=== PATIENT | female | born 1995 | race Caucasian/White ===

== ENCOUNTER → 2018-01-12 | Outpatient (CLI) | payer OTHER ==
--- NOTE | 2018-01-12 14:16 | Diagnostic Imaging Report ---
PROCEDURE: US PELVIC (NON OB) TECHNIQUE: Multiple real-time grayscale images were obtained over the pelvis in various projections transabdominally. INDICATION: Dysfunctional uterine bleeding. The uterus measures 7.7 x 4.5 x 3.5 cm. Endometrium is 5 mm in thickness. No uterine mass is detected. The right ovary measures 2.9 x 2.5 x 2.7 cm, and the left ovary measures 3.1 x 1.7 x 2.5 cm. The right ovary does contain a 16 mm cyst. Left ovary contains an 11 mm follicle. No adnexal mass or free fluid is seen. There is blood flow to the ovaries. IMPRESSION: Small right ovarian cyst. Study is otherwise unremarkable. Dictated by: Dictated on workstation # [id number]
== END ==
LOC: RAD 13:33
PROVIDERS: ATTEND Physician Assistant
DX: N83.201 Unspecified ovarian cyst, right side (principal)
CPT/HCPCS: 76856

== ENCOUNTER 2019-01-30 07:26 | Emergency (ER) | payer SELFPAY ==
[~2019-01-30] VITALS: Ht 165.1 cm; Wt 72.6 kg
--- NOTE | 2019-01-30 07:42 | ED Abdominal Pain ---
General Stated Complaint: ABD PAIN Source of Information: Patient Exam Limitations: No Limitations History of Present Illness Date Seen by Provider: Jan 30, 2019 Time Seen by Provider: 07:30 Initial Comments The patient presents to ER by private conveyance with chief complaint of left lower quadrant abdominal pelvis pain. His been going on for 4 days for the past 2 days have been far worse. She says it hurts worse when she urinates. She's not having any discharge. She had a last menstrual period 2 weeks ago. She has had her appendix and gallbladder surgically removed and no other surgeries. She is not on control nor has she had her tubes tied. She denies any trauma. She had a bowel movement 2 days ago. After having her gallbladder out her stools of been inconsistent. She's had no nausea or fever but she has had some chills. She says she sat on her front porch for the past 2 days with [place] on. She does have a history of ovarian cysts and endometriosis. She used Tylenol this morning with minimal relief. She has not used any NSAIDs. Allergies and Home Medications Allergies Coded Allergies: No Known Drug Allergies (Unverified , 01/30/19) Patient Home Medication List Home Medication List Reviewed: Yes Review of Systems Review of Systems Constitutional: No chills, No diaphoresis EENTM: No Blurred Vision, No Double Vision Respiratory: Denies Cough, Denies Shortness of Air Cardiovascular: Denies Chest Pain, Denies Lightheadedness Gastrointestinal: See HPI, Abdominal Pain, Constipated; Denies Diarrhea, Denies Nausea Genitourinary: Denies Burning, Denies Discharge Past Nxnlfdi-Axnwjb-Byisgh Hx Patient Social History Alcohol Use: Rarely Uses Recreational Drug Use: No Smoking Status: Current Everyday Smoker Type Used: Cigarettes (0.5 ppd) Physical Exam Vital Signs Vital Signs - First Documented 01/30/19 07:30 Temp 96.7 Pulse 88 Resp 18 B/P (MAP) 146/90 (108) Pulse Ox 100 Capillary Refill : Height/Weight/BMI Height: '" Weight: lbs. oz. kg; BMI Method: General Appearance: WD/WN, mild distress HEENT: PERRL/EOMI, pharynx normal Neck: full range of motion, normal inspection Respiratory: no respiratory distress, no accessory muscle use Cardiovascular: normal peripheral pulses, regular rate, rhythm, no edema Peripheral Pulses: 2+ Dorsalis Pedis (R), 2+ Left Dors-Pedis (L) Gastrointestinal: normal bowel sounds (active), non tender, soft, no organomegaly, other (negative for so as her mesenteric signs. ) Extremities: normal inspection, no pedal edema, normal capillary refill Neurologic/Psychiatric: alert, normal mood/affect, oriented x 3 Progress/Results/Core Measures Results/Orders Lab Results Laboratory Tests Test 01/30/19 07:35 01/30/19 07:45 Range/Units Urine Color YELLOW Urine Clarity SL CLOUDY Urine pH 7.0 5-9 Urine Specific [place] 1.010 L 1.016-1.022 Urine Protein NEGATIVE NEGATIVE Urine Glucose (UA) NEGATIVE NEGATIVE Urine Ketones NEGATIVE NEGATIVE Urine Nitrite NEGATIVE NEGATIVE Urine Bilirubin NEGATIVE NEGATIVE Urine Urobilinogen 0.2 NORMAL MG/DL Urine Leukocyte Esterase TRACE H NEGATIVE Urine RBC (Auto) NEGATIVE NEGATIVE Urine RBC NONE /HPF Urine WBC 10-25 H /HPF Urine Squamous Epithelial Cells >50 H /HPF Urine Crystals NONE /LPF Urine Bacteria FEW H /HPF Urine Casts NONE /LPF Urine Mucus NEGATIVE /LPF Urine Culture Indicated YES White Blood Count 10.9 4.3-11.0 10^3/uL Red Blood Count 4.54 4.35-5.85 10^6/uL Hemoglobin 14.8 11.5-16.0 G/DL Hematocrit 43 35-52 % Mean Corpuscular Volume 94 80-99 FL Mean Corpuscular Hemoglobin 33 25-34 PG Mean Corpuscular Hemoglobin Concent 35 32-36 G/DL Red Cell Distribution Width 12.0 10.0-14.5 % Platelet Count 162 130-400 10^3/uL Mean Platelet Volume 11.1 H 7.4-10.4 FL Neutrophils (%) (Auto) 70 42-75 % Lymphocytes (%) (Auto) 22 12-44 % Monocytes (%) (Auto) 5 0-12 % Eosinophils (%) (Auto) 3 0-10 % Basophils (%) (Auto) 0 0-10 % Neutrophils # (Auto) 7.6 1.8-7.8 X 10^3 Lymphocytes # (Auto) 2.4 1.0-4.0 X 10^3 Monocytes # (Auto) 0.6 0.0-1.0 X 10^3 Eosinophils # (Auto) 0.3 0.0-0.3 10^3/uL Basophils # (Auto) 0.0 0.0-0.1 10^3/uL Sodium Level 140 135-145 MMOL/L Potassium Level 3.8 3.6-5.0 MMOL/L Chloride Level 104 98-107 MMOL/L Carbon Dioxide Level 22 21-32 MMOL/L Anion Gap 14 5-14 MMOL/L Blood Urea Nitrogen 9 7-18 MG/DL Creatinine 0.74 0.60-1.30 MG/DL Estimat Glomerular Filtration Rate > 60 BUN/Creatinine Ratio 12 Glucose Level 98 70-105 MG/DL Calcium Level 9.1 8.5-10.1 MG/DL Corrected Calcium 8.8 8.5-10.1 MG/DL Total Bilirubin 0.2 0.1-1.0 MG/DL Aspartate Amino Transf (AST/SGOT) 17 5-34 U/L Alanine Aminotransferase (ALT/SGPT) 12 0-55 U/L Alkaline Phosphatase 63 40-136 U/L Total Protein 6.9 6.4-8.2 GM/DL Albumin 4.4 3.2-4.5 GM/DL Lipase 60 8-78 U/L My Orders Orders - SUSIE NOLAN Ua Culture If Indicated (01/30/19 07:28) Urine Bedside (01/30/19 07:30) Ed Iv/Invasive Line Start (01/30/19 07:37) Cbc With Automated Diff (01/30/19 07:37) Comprehensive Metabolic Panel (01/30/19 07:37) Lipase (01/30/19 07:37) Ketorolac Injection (Toradol Injection) (01/30/19 07:45) Urine Culture (01/30/19 07:35) Medications Given in ED Current Medications Medications Dose Ordered Sig/Gisell Route Start Time Stop Time Status Last Admin Dose Admin Ketorolac Tromethamine 30 mg ONCE ONCE IVP 01/30/19 07:45 01/30/19 07:46 DC 01/30/19 07:50 30 MG Vital Signs/I&O 01/30/19 07:30 Temp 96.7 Pulse 88 Resp 18 B/P (MAP) 146/90 (108) Pulse Ox 100 Progress Progress Note #1: Time: 07:41 Progress Note We'll start with Toradol and check urine, bedside and basic labs to include lipase. If we cannot control her pain or she has concerning laboratory features we would consider further investigation. Differential includes UTI, ovarian cyst, endometriosis, mittelschmerz, constipation. Progress Note #2: Time: 09:12 Progress Note Toradol was of modest benefit. Her labs are unrevealing. Her exam is still benign. We'll recommend some conservative management with laxatives, Tylenol, ibuprofen, heat and rest. She does not have to work today. Departure Impression Primary Impression: Abdominal pain Qualified Codes: R10.32 - Left lower quadrant pain Disposition: HOME, SELF-CARE Condition: Stable Departure-Patient Inst. Decision time for Depature: 09:13 Referrals: NO,LOCAL PHYSICIAN (PCP/Family) Primary Care Physician Patient Instructions: Painful Ovulation (DC) Add. Discharge Instructions: Perhaps this could be caused by mittelschmerz, constipation, ovarian cyst but it does not seem dangerous at this time. If your urine culture grows out a bad bacteria we will call you out an antibiotic in the next 2-3 days. If your pain becomes intractable or you start to have nausea vomiting and cannot keep fluids down or fever then you should return to the ER for further evaluation. Trial some laxatives such as Dulcolax or MiraLAX for the next day or so. Tylenol 1000 mg every 8 hours as needed for pain. Ibuprofen 800 mg every 8 hours as needed for pain. Warm heating pads applied to the abdominal wall. SUSIE NOLAN Jan 30, 2019 07:41
[2019-01-30] MEDS ORDERED: KETOROLAC 30 MG/ML VIAL IVP ONE (07:45)
[2019-01-30 07:54] LABS: COLOR,URINE YELLOW
[2019-01-30 07:55] LABS: BACTERIA,URINE FEW /HPF; BILIRUBIN,URINE NEGATIVE (NEGATIVE); CLARITY,URINE SL CLOUDY; GLUCOSE, URINE (UA) NEGATIVE (NEGATIVE); KETONES,URINE NEGATIVE (NEGATIVE); LEUKOCYTE ESTERASE ,URINE TRACE (NEGATIVE); NITRITE,URINE NEGATIVE (NEGATIVE); PROTEIN,URINE NEGATIVE (NEGATIVE); SQUAMOUS EPITHELIAL CELL,UR >50 /HPF; UROBILINOGEN,URINE 0.2 MG/DL (NORMAL)
[2019-01-30 09:05] LABS: BASOPHILS % (AUTO) 0 % (0-10); EOSINOPHILS # (AUTO) 0.3 10^3/uL (0.0-0.3); EOSINOPHILS % (AUTO) 3 % (0-10); HEMATOCRIT 43 % (35-52); HEMOGLOBIN 14.8 G/DL (11.5-16.0); LYMPHOCYTES # (AUTO) 2.4 X 10^3 (1.0-4.0); LYMPHOCYTES % (AUTO) 22 % (12-44); MEAN CORPUSCULAR HEMOGLOBIN 33 PG (25-34); MEAN CORPUSCULAR HGB CONC 35 G/DL (32-36); MEAN CORPUSCULAR VOLUME 94 FL (80-99); MEAN PLATELET VOLUME 11.1 FL (7.4-10.4); MONOCYTES # (AUTO) 0.6 X 10^3 (0.0-1.0); MONOCYTES % (AUTO) 5 % (0-12); NEUTROPHILS # (AUTO) 7.6 X 10^3 (1.8-7.8); NEUTROPHILS % (AUTO) 70 % (42-75); PLATELET COUNT 162 10^3/uL (130-400); WHITE BLOOD COUNT 10.9 10^3/uL (4.3-11.0)
[2019-01-30 09:07] LABS: ALANINE AMINOTRANSFERASE 12 U/L (0-55); ALBUMIN 4.4 GM/DL (3.2-4.5); ALKALINE PHOSPHATASE 63 U/L (40-136); BILIRUBIN,TOTAL 0.2 MG/DL (0.1-1.0); BUN/CREATININE RATIO 12; CALCIUM 9.1 MG/DL (8.5-10.1); CARBON DIOXIDE 22 MMOL/L (21-32); CHLORIDE 104 MMOL/L (98-107); CREATININE SERUM 0.74 MG/DL (0.60-1.30); GFR ESTIMATED > 60; GLUCOSE 98 MG/DL (70-105); LIPASE 60 U/L (8-78); POTASSIUM 3.8 MMOL/L (3.6-5.0); SODIUM 140 MMOL/L (135-145); TOTAL PROTEIN 6.9 GM/DL (6.4-8.2)
[2019-01-30 09:22] VITALS: BP 146/90
== END 2019-01-30 09:31 | disposition home or self-care (01) ==
LOC: EDUNIT# 07:26 → ER FS 07:28
DX: R10.32 Left lower quadrant pain (principal); F17.210 Nicotine dependence, cigarettes, uncomplicated
CPT/HCPCS: 36415; 80053; 81000; 83690; 84703; 85025; 87077; 87088

== ENCOUNTER 2019-03-28 10:52 | Emergency (ER) | payer SELFPAY ==
[~2019-03-28] VITALS: Ht 165 cm; Wt 71.6 kg
[2019-03-28 11:23] LABS: COLOR,URINE YELLOW
[2019-03-28 11:24] LABS: BACTERIA,URINE TRACE /HPF; BILIRUBIN,URINE NEGATIVE (NEGATIVE); CLARITY,URINE CLEAR; GLUCOSE, URINE (UA) NEGATIVE (NEGATIVE); KETONES,URINE NEGATIVE (NEGATIVE); LEUKOCYTE ESTERASE ,URINE NEGATIVE (NEGATIVE); NITRITE,URINE NEGATIVE (NEGATIVE); PROTEIN,URINE NEGATIVE (NEGATIVE); WBC,URINE 0-2 /HPF
--- NOTE | 2019-03-28 11:36 | ED General ---
General Chief Complaint: Abdominal/GI Problems Stated Complaint: PELVIC PAIN; LT LEG NUMBNESS/BLOTCHY Nursing Triage Note: Has had RLQ abdominal pain and left upper leg pain/numbness for over one month. Was seen by Dr Hoover on Mar 10 and diagnosed with a blood clot on ovary. The leg pain and abdominal pain are worsening, currently rated at 10/10 for leg pain and 5/10 for RLQ pain. Has not taken anything for pain today. Nursing Sepsis Screen: No Definite Risk Source of Information: Patient Exam Limitations: No Limitations History of Present Illness Date Seen by Provider: Mar 28, 2019 Time Seen by Provider: 11:31 Initial Comments Patient has 2 separate complaints. Number 1: she complains of left lower back pain radiating down left leg to foot for the past year. It is much worse today. She denies trauma or injury. No fevers or chills. Symptoms worse with movement. Number 2. Patient complains of right lower quadrant pain for the past several months. Her primary care physician is diagnosed with a clot on her ovary. She takes aspirin for this. She has been diagnosed with endometriosis in the past but is never had a laparoscopy to prove it Allergies and Home Medications Allergies Coded Allergies: No Known Drug Allergies (Unverified , 01/30/19) Home Medications Diclofenac Sodium 50 Mg Tablet., 50 MG PO BID Prescribed by: ROBBY OLIVER on 03/28/19 1200 Patient Home Medication List Home Medication List Reviewed: Yes Review of Systems Review of Systems Constitutional: no symptoms reported EENTM: no symptoms reported Respiratory: no symptoms reported Cardiovascular: no symptoms reported Gastrointestinal: abdominal pain Musculoskeletal: back pain Psychiatric/Neurological: Numbness, Paresthesia All Other Systems Reviewed Negative Unless Noted: Yes Past Aqcuunl-Fstghk-Czinyf Hx Patient Social History Alcohol Use: Denies Use Recreational Drug Use: No Smoking Status: Current Everyday Smoker Type Used: Cigarettes 2nd Hand Smoke Exposure: Yes Recent Foreign Travel: No Contact w/Someone Who Travel: No Recent Infectious Disease Expo: No Recent Hopitalizations: No Physical Abuse: No Sexual Abuse: No Mistreated: No Fear: No Seasonal Allergies Seasonal Allergies: No Past Medical History Surgeries: Yes Appendectomy, Gallbladder Respiratory: No Cardiac: No Neurological: No Female Reproductive Disorders: Endometriosis, Ovarian Cyst Genitourinary: No Gastrointestinal: No Musculoskeletal: No Endocrine: No HEENT: No Cancer: No Psychosocial: No Integumentary: No Physical Exam Vital Signs Vital Signs - First Documented 03/28/19 11:11 Temp 36.7 Pulse 85 Resp 16 B/P (MAP) 134/95 (108) Pulse Ox 100 Capillary Refill : Less Than 3 Seconds Height, Weight, BMI Height: 5'5.00" Weight: 160lbs. oz. [id number]; 26.00 BMI Method:Stated General Appearance: No Apparent Distress, WD/WN Eyes: Bilateral Eye Normal Inspection, Bilateral Eye PERRL, Bilateral Eye EOMI HEENT: PERRL/EOMI, Pharynx Normal Neck: Supple Respiratory: Lungs Clear, Normal Breath Sounds Cardiovascular: Regular Rate, Rhythm, No Edema Gastrointestinal: Soft; No Guarding, No Mass, No Rebound; Tenderness (very minimal right lower quadrant tenderness) Extremity: Normal Inspection Neurologic/Psychiatric: Alert, No Motor/Sensory Deficits, Other (motor 5 out of 5 bilaterally, toe dorsiflexion is strong and equal bilaterally. No sensory deficit.) Skin: Normal Color, Warm/Dry Progress/Results/Core Measures Suspected Sepsis Recent Fever Within 48 Hours: No Infection Criteria Present: None New/Unexplained Altered Menta: No Sepsis Screen: No Definite Risk SIRS Temperature: Pulse: 85 Respiratory Rate: 16 Laboratory Tests 03/28/19 11:05: White Blood Count 10.9 Blood Pressure 134 /95 Mean: 108 Laboratory Tests 03/28/19 11:05: Platelet Count 183 03/28/19 11:35: Creatinine 0.58L, Total Bilirubin 0.6 Results/Orders Lab Results Laboratory Tests Test 03/28/19 11:05 03/28/19 11:35 Range/Units White Blood Count 10.9 4.3-11.0 10^3/uL Red Blood Count 4.59 4.35-5.85 10^6/uL Hemoglobin 15.0 11.5-16.0 G/DL Hematocrit 42 35-52 % Mean Corpuscular Volume 92 80-99 FL Mean Corpuscular Hemoglobin 33 25-34 PG Mean Corpuscular Hemoglobin Concent 35 32-36 G/DL Red Cell Distribution Width 11.9 10.0-14.5 % Platelet Count 183 130-400 10^3/uL Mean Platelet Volume 10.9 H 7.4-10.4 FL Neutrophils (%) (Auto) 72 42-75 % Lymphocytes (%) (Auto) 23 12-44 % Monocytes (%) (Auto) 4 0-12 % Eosinophils (%) (Auto) 1 0-10 % Basophils (%) (Auto) 0 0-10 % Neutrophils # (Auto) 7.8 1.8-7.8 X 10^3 Lymphocytes # (Auto) 2.5 1.0-4.0 X 10^3 Monocytes # (Auto) 0.5 0.0-1.0 X 10^3 Eosinophils # (Auto) 0.1 0.0-0.3 10^3/uL Basophils # (Auto) 0.0 0.0-0.1 10^3/uL Urine Color YELLOW Urine Clarity CLEAR Urine pH 6.0 5-9 Urine Specific [place] <=1.005 1.016-1.022 Urine Protein NEGATIVE NEGATIVE Urine Glucose (UA) NEGATIVE NEGATIVE Urine Ketones NEGATIVE NEGATIVE Urine Nitrite NEGATIVE NEGATIVE Urine Bilirubin NEGATIVE NEGATIVE Urine Urobilinogen 0.2 NORMAL MG/DL Urine Leukocyte Esterase NEGATIVE NEGATIVE Urine RBC (Auto) NEGATIVE NEGATIVE Urine RBC NONE /HPF Urine WBC 0-2 /HPF Urine Squamous Epithelial Cells 5-10 /HPF Urine Crystals NONE /LPF Urine Bacteria TRACE /HPF Urine Casts NONE /LPF Urine Mucus NONE /LPF Urine Culture Indicated NO Urine Test NEGATIVE NEGATIVE Sodium Level 141 135-145 MMOL/L Potassium Level 4.0 3.6-5.0 MMOL/L Chloride Level 106 98-107 MMOL/L Carbon Dioxide Level 22 21-32 MMOL/L Anion Gap 13 5-14 MMOL/L Blood Urea Nitrogen 6 L 7-18 MG/DL Creatinine 0.58 L 0.60-1.30 MG/DL Estimat Glomerular Filtration Rate > 60 BUN/Creatinine Ratio 10 Glucose Level 89 70-105 MG/DL Calcium Level 9.2 8.5-10.1 MG/DL Corrected Calcium 8.5-10.1 MG/DL Total Bilirubin 0.6 0.1-1.0 MG/DL Aspartate Amino Transf (AST/SGOT) 18 5-34 U/L Alanine Aminotransferase (ALT/SGPT) 14 0-55 U/L Alkaline Phosphatase 52 40-136 U/L Total Protein 7.3 6.4-8.2 GM/DL Albumin 4.6 H 3.2-4.5 GM/DL My Orders Orders - ROBBY OLIVER MD Cbc With Automated Diff (03/28/19 11:05) Comprehensive Metabolic Panel (03/28/19 11:05) Hcg,Qualitative Urine (03/28/19 11:05) Ua Culture If Indicated (03/28/19 11:05) Vital Signs/I&O 03/28/19 03/28/19 11:11 12:21 Temp 36.7 36.7 Pulse 85 85 Resp 16 16 B/P (MAP) 134/95 (108) 134/95 (108) Pulse Ox 100 100 Capillary Refill : Less Than 3 Seconds Blood Pressure Mean: 108 Departure Impression Primary Impression: Abdominal pain Additional Impression: Sciatica Disposition: HOME, SELF-CARE Condition: Stable Departure-Patient Inst. Decision time for Depature: 11:59 Referrals: NO,LOCAL PHYSICIAN (PCP/Family) Primary Care Physician Patient Instructions: Sciatica Add. Discharge Instructions: See your primary care physician about her leg pain. You may need an MRI. All discharge instructions reviewed with patient and/or family. Voiced understanding. Scripts Diclofenac Sodium (Diclofenac Sodium) 50 Mg Tablet. 50 MG PO BID, #10 TAB Prov: ROBBY OLIVER MD 03/28/19 ROBBY OLIVER MD Mar 28, 2019 11:34
[2019-03-28 11:44] LABS: HEMATOCRIT 42 % (35-52); MEAN CORPUSCULAR HEMOGLOBIN 33 PG (25-34); WHITE BLOOD COUNT 10.9 10^3/uL (4.3-11.0)
[2019-03-28 11:45] LABS: BASOPHILS % (AUTO) 0 % (0-10); EOSINOPHILS # (AUTO) 0.1 10^3/uL (0.0-0.3); EOSINOPHILS % (AUTO) 1 % (0-10); LYMPHOCYTES # (AUTO) 2.5 X 10^3 (1.0-4.0); LYMPHOCYTES % (AUTO) 23 % (12-44); MEAN CORPUSCULAR HGB CONC 35 G/DL (32-36); MEAN CORPUSCULAR VOLUME 92 FL (80-99); MEAN PLATELET VOLUME 10.9 FL (7.4-10.4); MONOCYTES # (AUTO) 0.5 X 10^3 (0.0-1.0); MONOCYTES % (AUTO) 4 % (0-12); NEUTROPHILS # (AUTO) 7.8 X 10^3 (1.8-7.8); NEUTROPHILS % (AUTO) 72 % (42-75); PLATELET COUNT 183 10^3/uL (130-400); RED CELL DISTRIBUTION WIDTH 11.9 % (10.0-14.5)
[2019-03-28] MEDS ORDERED: DICL50TA6 PO (12:00)
[2019-03-28 12:21] VITALS: BP 134/95
[2019-03-28 12:32] LABS: CARBON DIOXIDE 22 MMOL/L (21-32); CHLORIDE 106 MMOL/L (98-107); SODIUM 141 MMOL/L (135-145)
[2019-03-28 12:33] LABS: ALANINE AMINOTRANSFERASE 14 U/L (0-55); ALBUMIN 4.6 GM/DL (3.2-4.5); ALKALINE PHOSPHATASE 52 U/L (40-136); BILIRUBIN,TOTAL 0.6 MG/DL (0.1-1.0); BUN/CREATININE RATIO 10; CALCIUM 9.2 MG/DL (8.5-10.1); CREATININE SERUM 0.58 MG/DL (0.60-1.30); GFR ESTIMATED > 60; GLUCOSE 89 MG/DL (70-105); TOTAL PROTEIN 7.3 GM/DL (6.4-8.2)
== END 2019-03-28 12:22 | disposition home or self-care (01) ==
LOC: EDUNIT# 10:52 → ER FS 10:55
DX: R10.31 Right lower quadrant pain (principal); M54.42 Lumbago with sciatica, left side; F17.210 Nicotine dependence, cigarettes, uncomplicated; Z90.49 Acquired absence of other specified parts of digestive tract
CPT/HCPCS: 36415; 80053; 81000; 84703; 85025

== ENCOUNTER 2019-06-12 20:17 | Emergency (ER) | payer MEDICAID, OTHER ==
[~2019-06-12] VITALS: Ht 165.1 cm; Wt 65.8 kg
[~2019-06-12 20:17] MED LIST: DICL50TA6 PO
--- NOTE | 2019-06-12 20:56 | ED GU-Female ---
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 PT REPORTS HAVING A SUBCHRONIC HEMATOMA AND THAT THIS MAY BE THE CAUSE. PT STATES SHE IS 6.6 WEEKS CURRENTLY. Nursing Sepsis Screen: No Definite Risk Source: patient, other Exam Limitations: no limitations History of Present Illness Date Seen by Provider: Jun 12, 2019 Time Seen by Provider: 20:42 Initial Comments Patient resents to ER by private conveyance with her significant other and chief complaint she started having some vaginal bleeding today after going for a walk in the park. She follows with Dr. Mi and is supposed to be on bed rest due to a subchorionic hemorrhage seen on ultrasound.. She said she had intercourse 2 days ago. She is a at 6 weeks and 6 days based on LMP of April 25, 2019. She's not having any vaginal discharge dysuria fevers chills nausea vomiting. She has some tightness and occasional stinging pain around her umbilicus that she treats with Tylenol as necessary throughout the . No other significant issues the . She does not know her blood type. She describes the vaginal bleeding is pink, slightly less than a period. No clots. Allergies and Home Medications Allergies Coded Allergies: No Known Drug Allergies (Unverified , 01/30/19) Home Medications Diclofenac Sodium 50 Mg Tablet.dr, 50 MG PO BID Prescribed by: ROBBY OLIVER on 03/28/19 1200 Patient Home Medication List Home Medication List Reviewed: Yes Review of Systems Review of Systems Constitutional: No chills, No diaphoresis EENTM: No ear discharge, No ear pain Respiratory: No cough, No phlegm Cardiovascular: No chest pain, No edema Gastrointestinal: No abdominal pain, No nausea, No vomiting Genitourinary: see HPI; denies discharge, denies dysuria : Yes LMP: Apr 25, 2019 Musculoskeletal: No back pain, No joint pain Skin: No pruritus, No rash Psychiatric/Neurological: Denies Headache, Denies Numbness, Denies Paresthesia Hematologic/Lymphatic: Denies Anemia, Denies Blood Clots, Denies Easy Bleeding, Denies Easy Bruising Past Dbkjvnd-Qmcbby-Anffvo Hx Patient Social History Alcohol Use: Denies Use Recreational Drug Use: No Smoking Status: Current Everyday Smoker Type Used: Cigarettes 2nd Hand Smoke Exposure: Yes Recent Foreign Travel: No Contact w/Someone Who Travel: No Recent Infectious Disease Expo: No Recent Hopitalizations: No Physical Abuse: No Sexual Abuse: No Fear: No Seasonal Allergies Seasonal Allergies: No Past Medical History Surgeries: Yes Appendectomy, Gallbladder Respiratory: No Cardiac: No Neurological: No : Yes Last Menstrual Period: Apr 25, 2019 Hx : 3 Hx Para: 2 Hx Total # of Abortions (Sp): 0 Female Reproductive Disorders: Endometriosis, Ovarian Cyst Genitourinary: No Gastrointestinal: No Musculoskeletal: No Endocrine: No HEENT: No Cancer: No Psychosocial: No Integumentary: No Physical Exam Vital Signs Vital Signs - First Documented 06/12/19 20:29 Temp 36.9 Pulse 91 Resp 18 B/P (MAP) 131/74 (93) O2 Delivery Room Air Capillary Refill : Less Than 3 Seconds Height, Weight, BMI Height: 5'5.00" Weight: 160lbs. oz. 72.478487wv; 24.00 BMI Method:Stated General Appearance: WD/WN, no apparent distress HEENT: PERRL/EOMI, pharynx normal Neck: full range of motion, normal inspection Cardiovascular: normal peripheral pulses, regular rate, rhythm Respiratory: no respiratory distress, no accessory muscle use Gastrointestinal: normal bowel sounds, non tender, soft, no organomegaly Genital/Rectal: normal genital exam, normal vaginal exam (no vaginal l acerations. Then, slightly reddish-brown mostly clear mucus in the vaginal vault. Cervix is multiparous, mildly friable and with mucous plug intact.) Extremities: normal range of motion, non-tender, normal inspection, no pedal edema, normal capillary refill Neurologic/Psychiatric: alert, normal mood/affect, oriented x 3 Skin: normal color, warm/dry Progress/Results/Core Measures Suspected Sepsis Recent Fever Within 48 Hours: No Infection Criteria Present: None New/Unexplained Altered Menta: No Sepsis Screen: No Definite Risk SIRS Temperature: Pulse: 91 Respiratory Rate: 18 Laboratory Tests 06/12/19 20:50: White Blood Count 10.5 Blood Pressure 131 /74 Mean: 93 Laboratory Tests 06/12/19 20:50: Creatinine 0.69, Platelet Count 213 Results/Orders Lab Results Laboratory Tests Test 06/12/19 20:43 06/12/19 20:50 Range/Units Urine Color YELLOW Urine Clarity CLOUDY Urine pH 6.5 5-9 Urine Specific [place] >=1.030 1.016-1.022 Urine Protein NEGATIVE NEGATIVE Urine Glucose (UA) NEGATIVE NEGATIVE Urine Ketones NEGATIVE NEGATIVE Urine Nitrite NEGATIVE NEGATIVE Urine Bilirubin NEGATIVE NEGATIVE Urine Urobilinogen 1.0 < = 1.0 MG/DL Urine Leukocyte Esterase NEGATIVE NEGATIVE Urine RBC (Auto) 1+ H NEGATIVE Urine RBC 0-2 /HPF Urine WBC NONE /HPF Urine Crystals PRESENT H /LPF Urine Amorphous Sediment LARGE [place] URATES H /LPF Urine Bacteria FEW H /HPF Urine Casts NONE /LPF Urine Mucus NEGATIVE /LPF Urine Culture Indicated NO Urine Test POSITIVE NEGATIVE White Blood Count 10.5 4.3-11.0 10^3/uL Red Blood Count 4.21 L 4.35-5.85 10^6/uL Hemoglobin 13.9 11.5-16.0 G/DL Hematocrit 39 35-52 % Mean Corpuscular Volume 93 80-99 FL Mean Corpuscular Hemoglobin 33 25-34 PG Mean Corpuscular Hemoglobin Concent 36 32-36 G/DL Red Cell Distribution Width 12.2 10.0-14.5 % Platelet Count 213 130-400 10^3/uL Mean Platelet Volume 9.9 7.4-10.4 FL Neutrophils (%) (Auto) 59 42-75 % Lymphocytes (%) (Auto) 31 12-44 % Monocytes (%) (Auto) 7 0-12 % Eosinophils (%) (Auto) 3 0-10 % Basophils (%) (Auto) 0 0-10 % Neutrophils # (Auto) 6.3 1.8-7.8 X 10^3 Lymphocytes # (Auto) 3.3 1.0-4.0 X 10^3 Monocytes # (Auto) 0.7 0.0-1.0 X 10^3 Eosinophils # (Auto) 0.3 0.0-0.3 10^3/uL Basophils # (Auto) 0.0 0.0-0.1 10^3/uL Sodium Level 139 135-145 MMOL/L Potassium Level 4.2 3.6-5.0 MMOL/L Chloride Level 107 98-107 MMOL/L Carbon Dioxide Level 21 21-32 MMOL/L Anion Gap 11 5-14 MMOL/L Blood Urea Nitrogen 10 7-18 MG/DL Creatinine 0.69 0.60-1.30 MG/DL Estimat Glomerular Filtration Rate > 60 BUN/Creatinine Ratio 14 Glucose Level 81 70-105 MG/DL Calcium Level 8.9 8.5-10.1 MG/DL Human Chorionic Gonadotropin, Quant 2349 H <5 MIU/ML My Orders Orders - SUSIE NOLAN Ua Culture If Indicated (06/12/19 20:22) Urine Bedside (06/12/19 20:22) Hcg,Qualitative Urine (06/12/19 20:48) Cbc With Automated Diff (06/12/19 20:49) Hcg,Quantitative (06/12/19 20:49) Abo Rh Type (06/12/19 20:49) Ed Iv/Invasive Line Start (06/12/19 20:49) Basic Metabolic Panel (06/12/19 20:49) Wet Prep (06/12/19 20:56) Vital Signs/I&O 06/12/19 20:29 Temp 36.9 Pulse 91 Resp 18 B/P (MAP) 131/74 (93) O2 Delivery Room Air Capillary Refill : Less Than 3 Seconds Blood Pressure Mean: 93 Progress Note #1: Time: 21:02 Progress Note Cervical exam did not reveal any trauma. We got a wet prep obtained and will do some labs to rule out a significant anemia. We'll also get a type and screen to see if she is in need of RhoGAM. Suspect that her activity has led her subchorionic hemorrhage to bleed little. We have reinforced pelvic rest and bed rest and close follow-up with Dr. Mi. Progress Note #2: Time: 21:39 Progress Note Rh+ blood type. Departure Impression Primary Impression: Vaginal bleeding affecting early Disposition: 01 HOME, SELF-CARE Condition: Stable Departure-Patient Inst. Decision time for Depature: 21:39 Referrals: NO,LOCAL PHYSICIAN (PCP/Family) Primary Care Physician Patient Instructions: Bleeding With (DC) Add. Discharge Instructions: Call Dr. Mi tomorrow for follow-up. Pelvic rest until released by the TRANSMISSION INSPECTOR. Continue to observe bed rest as instructed by your TRANSMISSION INSPECTOR. All discharge instructions reviewed with patient and/or family. Voiced understanding. Copy Copies To 1: AMBAR NIETO TITUS J Jun 12, 2019 20:55
[2019-06-12 20:58] LABS: BILIRUBIN,URINE NEGATIVE (NEGATIVE); CLARITY,URINE CLOUDY; COLOR,URINE YELLOW; GLUCOSE, URINE (UA) NEGATIVE (NEGATIVE); KETONES,URINE NEGATIVE (NEGATIVE); LEUKOCYTE ESTERASE ,URINE NEGATIVE (NEGATIVE); NITRITE,URINE NEGATIVE (NEGATIVE); PH,URINE 6.5 (5-9); PROTEIN,URINE NEGATIVE (NEGATIVE)
[2019-06-12 21:00] LABS: BASOPHILS % (AUTO) 0 % (0-10); EOSINOPHILS # (AUTO) 0.3 10^3/uL (0.0-0.3); EOSINOPHILS % (AUTO) 3 % (0-10); HEMATOCRIT 39 % (35-52); HEMOGLOBIN 13.9 G/DL (11.5-16.0); LYMPHOCYTES # (AUTO) 3.3 X 10^3 (1.0-4.0); LYMPHOCYTES % (AUTO) 31 % (12-44); MEAN CORPUSCULAR HEMOGLOBIN 33 PG (25-34); MEAN CORPUSCULAR HGB CONC 36 G/DL (32-36); MEAN CORPUSCULAR VOLUME 93 FL (80-99); MEAN PLATELET VOLUME 9.9 FL (7.4-10.4); MONOCYTES # (AUTO) 0.7 X 10^3 (0.0-1.0); MONOCYTES % (AUTO) 7 % (0-12); NEUTROPHILS # (AUTO) 6.3 X 10^3 (1.8-7.8); NEUTROPHILS % (AUTO) 59 % (42-75); PLATELET COUNT 213 10^3/uL (130-400); RED CELL DISTRIBUTION WIDTH 12.2 % (10.0-14.5); WHITE BLOOD COUNT 10.5 10^3/uL (4.3-11.0)
[2019-06-12 21:13] LABS: RBC,URINE 0-2 /HPF
[2019-06-12 21:14] LABS: AMORPHOUS SEDIMENT,UR LARGE AMOR URATES /LPF; BACTERIA,URINE FEW /HPF
[2019-06-12 21:17] LABS: BUN/CREATININE RATIO 14; CALCIUM 8.9 MG/DL (8.5-10.1); CARBON DIOXIDE 21 MMOL/L (21-32); CHLORIDE 107 MMOL/L (98-107); CREATININE SERUM 0.69 MG/DL (0.60-1.30); GFR ESTIMATED > 60; GLUCOSE 81 MG/DL (70-105); POTASSIUM 4.2 MMOL/L (3.6-5.0); SODIUM 139 MMOL/L (135-145)
[2019-06-12 21:47] VITALS: BP 131/74
== END 2019-06-12 21:49 | disposition home or self-care (01) ==
LOC: EDUNIT# 20:17 → ER 20:18
DX: O20.9 Hemorrhage in early pregnancy, unspecified (principal); O99.331 Smoking (tobacco) complicating pregnancy, first trimester; F17.210 Nicotine dependence, cigarettes, uncomplicated; Z90.49 Acquired absence of other specified parts of digestive tract; Z3A.01 Less than 8 weeks gestation of pregnancy
CPT/HCPCS: 36415; 80048; 81000; 84702; 84703; 85025; 86900; 86901; 87210

== ENCOUNTER 2019-06-27 20:37 | Emergency (ER) | payer MEDICAID ==
[~2019-06-27] VITALS: Ht 165 cm; Wt 71.0 kg
--- NOTE | 2019-06-27 21:46 | ED GU-Female ---
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 Patient had small clots coming out approximately 1-2 cm in diameter. Patient states that she has low suprapubic discomfort. No trauma involved. Patient is aware that this may be a spontaneous . Patient will follow-up with Dr. muñoz who has an ultrasound in his office tomorrow. Dark blood was coming out of the cervical os no bright red bleeding noted patient will use pads no intercourse and will see Dr. Mi tomorrow. She has no other significant medical problems she gave informed consent for examination and evaluation. Timing/Duration: this afternoon Severity/Quality: moderate Location: suprapubic Radiation: back Activities at Onset: none Prior Genitourinary Problems: none Sexual [place] History: single partner Modifying Factors: Improves With Movement Associated Symptoms: abdominal pain Allergies and Home Medications Allergies Coded Allergies: No Known Drug Allergies (Unverified , 01/30/19) Home Medications Diclofenac Sodium 50 Mg Tablet.dr, 50 MG PO BID Prescribed by: ROBBY OLIVER on 03/28/19 1200 Patient Home Medication List Home Medication List Reviewed: Yes Review of Systems Review of Systems Constitutional: weakness, other (suprapubic abdominal discomfort) EENTM: no symptoms reported Respiratory: no symptoms reported Cardiovascular: no symptoms reported Gastrointestinal: abdominal pain (suprapubic discomfort colicky in nature) Genitourinary: discharge (bloody with small clots) : Yes (patient reports she is 9 weeks today but understands this may be a) Musculoskeletal: back pain Skin: no symptoms reported Psychiatric/Neurological: Anxiety Endocrine: No Symptoms Reported Hematologic/Lymphatic: No Symptoms Reported Past Ylxkkgs-Ndrarx-Ttiypq Hx Patient Social History Alcohol Use: Denies Use Recreational Drug Use: No Smoking Status: Current Everyday Smoker Type Used: Cigarettes 2nd Hand Smoke Exposure: Yes Recent Foreign Travel: No Contact w/Someone Who Travel: No Recent Infectious Disease Expo: No Recent Hopitalizations: No Physical Abuse: No Sexual Abuse: No Seasonal Allergies Seasonal Allergies: No Past Medical History Surgeries: Yes Appendectomy, Gallbladder Respiratory: No Cardiac: No Neurological: No Female Reproductive Disorders: Endometriosis, Ovarian Cyst Genitourinary: No Gastrointestinal: No Musculoskeletal: No Endocrine: No HEENT: No Cancer: No Psychosocial: No Integumentary: No Physical Exam Vital Signs Vital Signs - First Documented 06/27/19 20:45 Temp 36.7 Pulse 80 Resp 16 B/P (MAP) 114/75 (88) Pulse Ox 99 O2 Delivery Room Air Capillary Refill : Less Than 3 Seconds Height, Weight, BMI Height: 5'5.00" Weight: 160lbs. oz. 72.425508rh; 26.00 BMI Method:Stated General Appearance: WD/WN, moderate distress HEENT: PERRL/EOMI, normal ENT inspection, pharynx normal Neck: non-tender, full range of motion, supple, normal inspection Cardiovascular: regular rate, rhythm, no edema, no gallop, no JVD, no murmur Respiratory: chest non-tender, lungs clear, normal breath sounds, no respiratory distress, no accessory muscle use Gastrointestinal: normal bowel sounds, soft, no organomegaly, tenderness (suprapubic) Genital/Rectal: tenderness (normal external genitalia patient has been shaved. Patient has small clots 1 cm to 1 x 2 cm in the vaginal vault removed without difficulty dark red blood was coming from the os slowly. Total amount of clots in the vault was about 4 cc. Uterus is slightly enlarged consistent with a 9 week IUP no adnexal masses no adnexal pain on examination.) Rectal: normal rectal tone (normal external anal findings no digital exam done) Pelvic: normal external exam, no cerv. 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 Mi in the morning for definitive evaluation with ultrasonography), oriented x 3 Skin: normal color, warm/dry Lymphatic: no adenopathy Progress/Results/Core Measures Suspected Sepsis Recent Fever Within 48 Hours: No Infection Criteria Present: None New/Unexplained Altered Menta: No Sepsis Screen: No Definite Risk SIRS Temperature: Pulse: 80 Respiratory Rate: 16 Blood Pressure 114 /75 Mean: 88 Results/Orders Vital Signs/I&O 06/27/19 20:45 Temp 36.7 Pulse 80 Resp 16 B/P (MAP) 114/75 (88) Pulse Ox 99 O2 Delivery Room Air Capillary Refill : Less Than 3 Seconds Blood Pressure Mean: 88 Progress Note : Time: 21:49 Progress Note Patient consented to gynecologic examination was present during the evaluation RN was present during the entire evaluation. Small clots removed from the vaginal vault total volume of all 4 cc. Patient did have slow dark red bleeding from the os consistent with spontaneous termination of . Ultrasonography was done tomorrow at Dr.'s Mi office Departure Impression Primary Impression: Vaginal bleeding affecting early Additional Impressions: Spontaneous miscarriage spontaneous miscarriage Disposition: HOME, SELF-CARE Condition: Stable Departure-Patient Inst. Decision time for Depature: 21:51 Referrals: NO,LOCAL PHYSICIAN (PCP) Primary Care Physician AMBAR NIETO DO Patient Instructions: IRREGULAR VAGINAL BLEEDING, Miscarriage (DC), Bleeding With Add. Discharge Instructions: 23-year-old female presents with vaginal bleeding consistent with spontaneous miscarriage. Patient will follow-up with Dr. Mi tomorrow to identify ultrasound evidence of termination of . Patient has dark red blood coming from the os with clot formations. She has no evidence of anemia capillary refill is less than 1 second total blood loss in the vaginal vault approximately 4 cc she reports that she has been passing clots will continue to use pads and follow with Dr. Mi tomorrow All discharge instructions reviewed with patient and/or family. Voiced understanding. IGNACIA NESS DO Jun 27, 2019 21:46
[2019-06-27 22:25] LABS: WHITE BLOOD COUNT 10.9 10^3/uL (4.3-11.0)
[2019-06-27 22:26] LABS: BASOPHILS % (AUTO) 0 % (0-10); EOSINOPHILS # (AUTO) 0.4 10^3/uL (0.0-0.3); EOSINOPHILS % (AUTO) 4 % (0-10); HEMATOCRIT 40 % (35-52); HEMOGLOBIN 14.2 G/DL (11.5-16.0); LYMPHOCYTES # (AUTO) 3.7 X 10^3 (1.0-4.0); LYMPHOCYTES % (AUTO) 34 % (12-44); MEAN CORPUSCULAR HEMOGLOBIN 33 PG (25-34); MEAN CORPUSCULAR HGB CONC 33 G/DL (32-36); MEAN CORPUSCULAR VOLUME 92 FL (80-99); MEAN PLATELET VOLUME 10.2 FL (7.4-10.4); MONOCYTES # (AUTO) 0.5 X 10^3 (0.0-1.0); MONOCYTES % (AUTO) 5 % (0-12); NEUTROPHILS # (AUTO) 6.2 X 10^3 (1.8-7.8); NEUTROPHILS % (AUTO) 57 % (42-75); PLATELET COUNT 219 10^3/uL (130-400); RED CELL DISTRIBUTION WIDTH 11.6 % (10.0-14.5)
[2019-06-27 22:32] VITALS: BP 114/75
[2019-06-27 22:57] LABS: BAND NEUTROPHILS 3 %; BASOPHILS % (MANUAL) 0 %; EOSINOPHILS % (MANUAL) 4 %; LYMPHOCYTES % (MANUAL) 48 %; MONOCYTES % (MANUAL) 2 %; NEUTROPHILS % (MANUAL) 43 %
[2019-06-27 22:58] LABS: RBC MORPH NORMAL
== END 2019-06-27 22:32 | disposition home or self-care (01) ==
LOC: EDUNIT# 20:37 → ER FS 20:39
DX: O03.9 Complete or unspecified spontaneous abortion without complication (principal); F17.210 Nicotine dependence, cigarettes, uncomplicated; Z90.49 Acquired absence of other specified parts of digestive tract
CPT/HCPCS: 36415; 84702; 85007; 85027; 99284

== ENCOUNTER 2019-09-05 08:10 | Emergency (ER) | payer OTHER, MEDICAID ==
--- OUTSIDE RECORDS SUMMARY | 2019-09-05 08:17 | XMS REPORT | Continuity of Care Document ---
Author Organization Unknown Address Unknown Phone Unavailable Allergies There is no data. Medications There is no data. Problems There is no data. Procedures There is no data. Results Test Result Range [facility] - 08/11/17 14:27 GLUCOSE 87 mg/dL 65-99 UREA NITROGEN (BUN) 7 mg/dL 7-25 CREATININE 0.75 mg/dL 0.50-1.10 eGFR NON-AFR. TOGOLESE 114 mL/min/1.73m2 > OR = 60 eGFR 132 mL/min/1.73m2 > OR = 60 BUN/CREATININE RATIO NOT APPLICABLE (calc) 6-22 SODIUM 142 mmol/L 135-146 POTASSIUM 3.9 mmol/L 3.5-5.3 CHLORIDE 110 mmol/L 98-110 CARBON DIOXIDE 26 mmol/L 20-31 CALCIUM 9.7 mg/dL 8.6-10.2 PROTEIN, TOTAL 7.4 g/dL 6.1-8.1 ALBUMIN 4.9 g/dL 3.6-5.1 GLOBULIN 2.5 g/dL (calc) 1.9-3.7 ALBUMIN/GLOBULIN RATIO 2.0 (calc) 1.0-2. 5 BILIRUBIN, TOTAL 0.9 mg/dL 0.2-1.2 ALKALINE PHOSPHATASE 51 U/L 33-115 AST 18 U/L 10-30 ALT 12 U/L 6-29 CBC - 08/11/17 14:27 WHITE BLOOD CELL COUNT 9.0 Thousand/uL 3 .8-10.8 RED BLOOD CELL COUNT 4.81 Million/uL 3.8 0-5.10 HEMOGLOBIN 15.6 g/dL 11.7-15.5 HEMATOCRIT 45.2 % 35.0-45.0 MCV 94.0 fL 80.0-100.0 MCH 32.4 pg 27.0-33.0 MCHC 34.5 g/dL 32.0-36.0 RDW 11.2 % 11.0-15.0 PLATELET COUNT 195 Thousand/uL 140-400 MPV 11.7 fL 7.5-12.5 ABSOLUTE NEUTROPHILS 5544 cells/uL 1500- 7800 ABSOLUTE LYMPHOCYTES 2889 cells/uL 850-3 900 ABSOLUTE MONOCYTES 387 cells/uL 200-950 ABSOLUTE EOSINOPHILS 126 cells/uL 15-500 ABSOLUTE BASOPHILS 54 cells/uL 0-200 NEUTROPHILS 61.6 % NRG LYMPHOCYTES 32.1 % NRG MONOCYTES 4.3 % NRG EOSINOPHILS 1.4 % NRG BASOPHILS 0.6 % NRG TSH - 08/11/17 14:27 TSH 0.87 mIU/L NRG CULTURE, GENITAL - 10/12/17 13:04 CULTURE, GENITAL SEE NOTE NRG SUREPATH PAP RFX HPV mRNA E6/E7 - 13:04 CLINICAL INFORMATION: NRG LMP: 09/2017 NRG PREV. PAP: N/A NRG PREV. 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: NRG COMMENT NRG LIPID PANEL - 10/28/18 10:30 CHOLESTEROL, TOTAL 156 mg/dL <200 HDL CHOLESTEROL 43 mg/dL >50 TRIGLYCERIDES 99 mg/dL <150 LDL-CHOLESTEROL 94 mg/dL (calc) NRG CHOL/HDLC RATIO 3.6 (calc) <5.0 NON HDL CHOLESTEROL 113 mg/dL (calc) <13 0 GLUCOSE, SERUM - 10/28/18 10:30 GLUCOSE 89 mg/dL 65-99 GC/CHLAMYDIA (SWAB OR URINE)-RAPID - 06/26 10:08 CHLAMYDIA TRACHOMATIS RNA, TMA NOT DETECTED NOT DETECTED NEISSERIA GONORRHOEAE RNA, TMA NOT DETECTED NOT DETECTED COMMENT NRG HCG, QUANTITATIVE - 05/27/19 15:30 HCG, TOTAL, QN 2661 mIU/mL NRG HCG, QUANTITATIVE - 06/03/19 12:17 HCG, TOTAL, QN 2331 mIU/mL NRG HCG, QUANTITATIVE - 06/06/19 15:46 HCG, TOTAL, QN 2539 mIU/mL NRG SUREPATH PAP RFX HPV mRNA E6/E7 - 10:51 CLINICAL INFORMATION: NRG LMP: NRG PREV. PAP: NRG PREV. BX: NRG SOURCE: Cervix NRG STATEMENT OF ADEQUACY: NRG INTERPRETATION/RESULT: NRG GEOLOGICAL ENGINEERING TEACHER: NRG COMMENT NRG HCG, QUANTITATIVE - 06/28/19 11:59 HCG, TOTAL, QN 1988 mIU/mL NRG HCG, QUANTITATIVE - 07/05/19 15:40 HCG, TOTAL, QN 24 mIU/mL NRG BLOOD TPYE/RH FACTOR - 07/12/19 16:08 ABO GROUP A NRG RH TYPE RH(D) POSITIVE NRG ANTIBODY SCREEN - 07/12/19 16:08 ANTIBODY SCREEN, RBC W/REFL ID, TITER AND AG NO ANTIBODIES DETECTED NRG HCG, QUANTITATIVE - 07/12/19 16:08 HCG, TOTAL, QN <2 mIU/mL NRG RUBELLA IMMUNE STATUS - 07/12/19 16:08 RUBELLA ANTIBODY (IGG) 1.29 index NRG HCG, QUANTITATIVE - 08/01/19 13:57 HCG, TOTAL, QN 3205 mIU/mL NRG Encounters ACCT No. Visit Date/Time Discharge Status Pt. Type Provider Facility Loc./Unit Complaint [id number] 03/28/2019 15:58:01 [place] Unknown [id number] 08/11/2019 15:00:00 08/11/2019 23:59:5 9 [facility] Outpatient [facility] [id number] 08/01/2019 14:00:00 Document Registration [id number] 07/12/2019 14:45:00 Document Registration [id number] 07/05/2019 15:45:00 Document Registration [id number] 06/28/2019 10:15:00 Document Registration [id number] 06/21/2019 13:30:00 Document Registration [id number] 06/06/2019 14:30:00 Document Registration [id number] 06/03/2019 12:15:00 Document Registration [id number] 05/27/2019 15:30:00 Document Registration [id number] 03/08/2019 10:00:00 Document Registration [id number] 10/28/2018 10:15:00 Document Registration [id number] 10/12/2017 10:00:00 Document Registration [id number] 08/11/2017 13:20:00 Document Registration [id number] 04/07/2019 14:06:07 [facility] Document Registration
[2019-09-05] MEDS ORDERED: ONDA4TAB11 (08:26)
[2019-09-05] MEDS ORDERED: folic (08:26)
--- NOTE | 2019-09-05 08:40 | ED Cough/URI ---
General Chief Complaint: Cough/Cold/Flu Symptoms Stated Complaint: FEVER; COUGH Nursing Triage Note: Started coughing last night and is coughing worse this morning. States she had a temp of 99 at home. Took tylenol at 0645. Also states she is short of breath and it hurts her chest to take a deep breath. Has not had any recent travel or been around anyone suspected of having COVID 19. Is also 10 weeks . Sepsis Screen: No Definite Risk History of Present Illness Date Seen by Provider: Sep 05, 2019 Time Seen by Provider: 08:38 Initial Comments Onset of cough yesterday morning. States hurts to take a deep breath, primarily on her right low back and side No known sick contacts. 10 weeks . "fever" this morning of 99, took a tylenol. No Hx of asthma/ lung disease. Allergies and Home Medications Allergies Coded Allergies: No Known Drug Allergies (Unverified , 01/30/19) Home Medications Albuterol Sulfate 1 Puff Puff, 2 PUFF IH Q4H 1 PUFF = 90 MCG Prescribed by: JONH COY on 09/05/19 0995 Patient Home Medication List Home Medication List Reviewed: Yes Review of Systems Review of Systems Constitutional: No chills, No diaphoresis, No dizziness; fever (of 99); No malaise, No weakness EENTM: see HPI, no symptoms reported Respiratory: cough; No dyspnea on exertion, No hemoptysis, No orthopnea; phlegm (small amount, non-purulent); No short of breath, No stridor, No wheezing Cardiovascular: chest pain (intermittent w cough) Gastrointestinal: No abdominal pain, No diarrhea, No loss of appetite, No nausea, No vomiting Musculoskeletal: back pain (intermittent w cough) Skin: No change in color, No rash Past Uiauael-Gntjcc-Vcbjtv Hx Past Med/Social Hx: Reviewed Nursing Past Med/Soc Hx Patient Social History Alcohol Use: Denies Use Recreational Drug Use: No Smoking Status: Current Everyday Smoker Type Used: Cigarettes 2nd Hand Smoke Exposure: Yes Recent Foreign Travel: No Contact w/Someone Who Travel: No Recent Infectious Disease Expo: No Recent Hopitalizations: No Seasonal Allergies Seasonal Allergies: No Past Medical History Surgeries: Yes Appendectomy, Gallbladder Respiratory: No Cardiac: No Neurological: No Female Reproductive Disorders: Endometriosis, Ovarian Cyst Genitourinary: No Gastrointestinal: No Musculoskeletal: No Endocrine: No HEENT: No Cancer: No Psychosocial: No Integumentary: No Physical Exam Vital Signs - First Documented 09/05/19 08:27 Temp 36.8 Pulse 89 Resp 16 B/P (MAP) 127/83 (98) Pulse Ox 96 Capillary Refill : Less Than 3 Seconds Height: 5'5.00" Weight: 160lbs. oz. 72.193971dc; BMI Method:Stated General Appearance: WD/WN, no apparent distress HEENT: normal ENT inspection Neck: non-tender, supple Respiratory: chest non-tender, lungs clear, normal breath sounds, no respiratory distress, no accessory muscle use Cardiovascular: regular rate, rhythm, no edema Gastrointestinal: normal bowel sounds, non tender, soft Extremities: non-tender, normal inspection Neurologic/Psychiatric: alert, normal mood/affect Skin: normal color, warm/dry Progress/Results/Core Measures Suspected Sepsis Recent Fever Within 48 Hours: Yes Infection Criteria Present: Suspected New Infection New/Unexplained Altered Menta: No Sepsis Screen: No Definite Risk SIRS Temperature: Pulse: 89 Respiratory Rate: 16 Blood Pressure 127 /83 Mean: 98 Results/Orders Lab Results Laboratory Tests Test 09/05/19 08:35 Range/Units Group A Streptococcus Screen NEGATIVE NEGATIVE Micro Results Microbiology 09/05/19 Influenza Types A,B Antigen (ZOË) - Final, Complete My Orders Orders - JONH COY DO Rapid Strep A Screen (09/05/19 08:39) Influenza A And B Antigens (09/05/19 08:39) Chest 1 View Ap/Pa Only (09/05/19 08:39) Vital Signs/I&O 09/05/19 09/05/19 08:27 09:41 Temp 36.8 Pulse 89 69 Resp 16 16 B/P (MAP) 127/83 (98) 111/68 Pulse Ox 96 100 Capillary Refill : Less Than 3 Seconds Blood Pressure Mean: 98 Progress Note : Progress Note Did not swab for Covid , but advised patient to self-quarantine for 14 days. Departure Impression Primary Impression: Bronchitis Disposition: 01 HOME, SELF-CARE Condition: Stable Departure-Patient Inst. Decision time for Depature: 09:39 Referrals: NO,LOCAL PHYSICIAN (PCP/Family) Primary Care Physician Patient Instructions: Acute Bronchitis, Adult (DC) Scripts Albuterol Sulfate (PROAIR HFA) 1 Puff Puff 2 PUFF IH Q4H, #1 PUFF 1 PUFF = 90 MCG Prov: JONH COY DO 09/05/19 JONH COY DO Sep 05, 2019 08:40
[2019-09-05] MEDS ORDERED: RT-ALBUINH IH (09:39)
[2019-09-05 09:41] VITALS: BP 111/68
--- NOTE | 2019-09-05 12:06 | Diagnostic Imaging Report ---
CHEST 1 VIEW AP/PA ONLY Indication: Cough and shortness of breath. Comparison: None available. Findings: Hazy opacities over the bilateral lung bases favor summation shadow of patient's breast tissue. Otherwise, there are no dense consolidations present. No pleural effusion or pneumothorax. Heart is normal in size and mediastinal contours are normal. Impression: 1. Basilar hazy opacities at the lung bases favor summation shadow of patient's breast tissue. However, if there is strong clinical suspicion for pneumonia, these opacities could be due to airspace opacities from pneumonia. Dictated by: Dictated on workstation # [id number]
== END 2019-09-05 09:45 | disposition home or self-care (01) ==
LOC: EDUNIT# 08:10 → ER FS 08:12
DX: O99.511 Diseases of the respiratory system complicating pregnancy, first trimester (principal); J40 Bronchitis, not specified as acute or chronic; Z3A.10 10 weeks gestation of pregnancy
CPT/HCPCS: 71045; 87430; 87804

== ENCOUNTER 2021-11-25 22:00 | Emergency (ER) | payer MEDICAID, OTHER ==
[~2021-11-25 22:00] MED LIST changes: +ONDA4TAB11; +RT-ALBUINH IH; +folic
--- NOTE | 2021-11-25 22:16 | ED Abdominal Pain ---
General Chief Complaint: Abdominal/GI Problems Stated Complaint: ABD PAIN Nursing Triage Note: Pt complaining of abdominal pain. Pt states she has a hernia that she has known about for a couple years but started having increased pain on Thursday History of Present Illness Date Seen by Provider: Nov 25, 2021 Time Seen by Provider: 22:10 Initial Comments 25-year-old female presents with abdominal pain. Patient reports that she has a known periumbilical hernia that has been there for couple years. She reports that she been having increased pain in that area for the last 3 days. That after having a bowel movement she started having pain. That if she lays flat is better but if she stands up the pain gets worse. Patient reports that it had been bothering her so she never went and got it fixed. Allergies and Home Medications Allergies Coded Allergies: No Known Drug Allergies (Unverified , 01/30/19) Patient Home Medication List Home Medication List Reviewed: Yes Albuterol Sulfate (Proair Hfa) 1 Puff Puff, 2 PUFF IH Q4H Prescribed by: JONH COY on 09/05/19 0939 Ondansetron (Ondansetron Odt) 4 Mg Tab.rapdis, (Reported) Entered as Reported by: JORDY DOYLE on 09/05/19825 [folic] , (Reported) Entered as Reported by: JORDY DOYLE on 09/05/19825 Review of Systems Review of Systems Constitutional: No chills, No fever EENTM: No Symptoms Reported Respiratory: No Symptoms Reported Cardiovascular: No Symptoms Reported Gastrointestinal: Abdominal Pain; Denies Nausea, Denies Vomiting Genitourinary: No Symptoms Reported Musculoskeletal: no symptoms reported Skin: no symptoms reported Psychiatric/Neurological: No Symptoms Reported Endocrine: No Symptoms Reported Hematologic/Lymphatic: No Symptoms Reported Past Ulkqgpa-Dmacse-Pdxldn Hx Patient Social History Tobacco Use?: No Use of E-Cig and/or Vaping dev: Yes Alcohol Use?: No Seasonal Allergies Seasonal Allergies: No Past Medical History Surgeries: Yes Appendectomy, Gallbladder Respiratory: No Cardiac: No Neurological: No Female Reproductive Disorders: Endometriosis, Ovarian Cyst Genitourinary: No Gastrointestinal: No Musculoskeletal: No Endocrine: No HEENT: No Cancer: No Psychosocial: No Integumentary: No Physical Exam Vital Signs Vital Signs - First Documented 11/25/21 22:03 Temp 36.8 Pulse 80 Resp 18 B/P (MAP) 157/75 (102) Pulse Ox 98 O2 Delivery Room Air Capillary Refill : Less Than 3 Seconds Height/Weight/BMI Height: 5'5.00" Weight: 160lbs. oz. 72.426089yf; BMI Method:Stated General Appearance: WD/WN, no apparent distress Neck: full range of motion, supple, normal inspection Respiratory: lungs clear, normal breath sounds Cardiovascular: normal peripheral pulses, regular rate, rhythm Gastrointestinal: non tender, soft, hernia (Periumbilical, reduces but then returns immediately after pressure let off) Extremities: normal range of motion, non-tender, normal inspection Neurologic/Psychiatric: alert, normal mood/affect, oriented x 3 Skin: normal color, warm/dry Progress/Results/Core Measures Results/Orders Lab Results Laboratory Tests Test 11/25/21 22:17 Range/Units White Blood Count 9.1 4.3-11.0 10^3/uL Red Blood Count 4.27 3.80-5.11 10^6/uL Hemoglobin 12.9 11.5-16.0 g/dL Hematocrit 37 35-52 % Mean Corpuscular Volume 87 80-99 fL Mean Corpuscular Hemoglobin 30 25-34 pg Mean Corpuscular Hemoglobin Concent 35 32-36 g/dL Red Cell Distribution Width 11.8 10.0-14.5 % Platelet Count 208 130-400 10^3/uL Mean Platelet Volume 9.7 9.0-12.2 fL Immature Granulocyte % (Auto) 0 % Neutrophils (%) (Auto) 60 42-75 % Lymphocytes (%) (Auto) 32 12-44 % Monocytes (%) (Auto) 6 0-12 % Eosinophils (%) (Auto) 2 0-10 % Basophils (%) (Auto) 0 0-10 % Neutrophils # (Auto) 5.5 1.8-7.8 10^3/uL Lymphocytes # (Auto) 2.9 1.0-4.0 10^3/uL Monocytes # (Auto) 0.5 0.0-1.0 10^3/uL Eosinophils # (Auto) 0.1 0.0-0.3 10^3/uL Basophils # (Auto) 0.0 0.0-0.1 10^3/uL Immature Granulocyte # (Auto) 0.0 0.0-0.1 10^3/uL Sodium Level 140 135-145 MMOL/L Potassium Level 4.0 3.6-5.0 MMOL/L Chloride Level 107 98-107 MMOL/L Carbon Dioxide Level 22 21-32 MMOL/L Anion Gap 11 5-14 MMOL/L Blood Urea Nitrogen 12 7-18 MG/DL Creatinine 0.71 0.60-1.30 MG/DL Estimat Glomerular Filtration Rate 121 BUN/Creatinine Ratio 17 Glucose Level 122 H 70-105 MG/DL Calcium Level 9.2 8.5-10.1 MG/DL Corrected Calcium 8.8 8.5-10.1 MG/DL Total Bilirubin 0.4 0.1-1.0 MG/DL Aspartate Amino Transf (AST/SGOT) 14 5-34 U/L Alanine Aminotransferase (ALT/SGPT) 15 0-55 U/L Alkaline Phosphatase 94 40-136 U/L Total Protein 7.1 6.4-8.2 GM/DL Albumin 4.5 3.2-4.5 GM/DL My Orders Orders - MANRIQUE,RAEANN L DO Cbc With Automated Diff (11/25/21 22:18) Comprehensive Metabolic Panel (11/25/21 22:18) Lactic Acid Analyzer (11/25/21 22:18) Ct Abdomen/Pelvis Wo (11/25/21 22:18) Vital Signs/I&O 11/25/21 22:03 Temp 36.8 Pulse 80 Resp 18 B/P (MAP) 157/75 (102) Pulse Ox 98 O2 Delivery Room Air Blood Pressure Mean: 102 Progress Progress Note : Progress Note Patient with intra-abdominal wall hernia with some inflammatory changes to the fat. No strangulation or bowel. Patient will be placed in abdominal wall binder, given some pain medicine and should call general surgery in the morning to have them review the CT and arrange for outpatient follow-up. Patient was stable and discharged home Diagnostic Imaging Diagonstic Imaging: CT Plain Films/CT/US/NM/MRI: abdomen Comments Date of Exam:11/25/21 CT ABDOMEN/PELVIS WO PROCEDURE: CT abdomen and pelvis without contrast. TECHNIQUE: Multiple contiguous axial images were obtained through the abdomen and pelvis without the use of intravenous contrast. Auto Exposure Controls were utilized during the CT exam to meet ALARA standards for radiation dose reduction. INDICATION: Abdominal pain from previous hernia. History of cholecystectomy and appendectomy. EXAMINATION: CT abdomen and pelvis without contrast 11/25/2021. FINDINGS: Lung bases unremarkable. The nonopacified abdominal viscera limited by the lack of contrast. No gross acute abnormality appreciated within the liver or spleen. There is evidence of previous cholecystectomy. The adrenal glands and pancreas unremarkable. Kidneys unremarkable. There is an anterior abdominal wall hernia which contains fat. There is surrounding internal fat stranding suggesting inflammatory change. There is a nonobstructive bowel gas pattern. There is diverticulosis without evidence for diverticulitis. There is no ascites. No free air. Air is noted in the region of the cervix/vaginal canal likely iatrogenic. Correlate clinically. There is no acute osseous abnormality IMPRESSION: 1. Intra-abdominal wall hernia which contains fat with surrounding and internal inflammatory change noted. Mild inflammation extends into the adjacent intraperitoneal fat. Otherwise incidental findings as above. Departure Impression Primary Impression: Hernia of anterior abdominal wall Disposition: HOME, SELF-CARE Condition: Stable Departure-Patient Inst. Referrals: SELF,STELLA BARLOW (PCP/Family) Primary Care Physician Patient Instructions: Abdominal Hernia (DC) Add. Discharge Instructions: Please call Dr. Hartley's office tomorrow morning to arrange for an outpatient follow-up. Please let them know that you were seen in the emergency room and was asked to call to have them review CT and arrange for a follow-up. All discharge instructions reviewed with patient and/or family. Voiced understanding. Scripts Hydrocodone/Acetaminophen (Hydrocodone-Acetamin 5-325 mg) 5 Mg-325 Mg Tablet 1 TAB PO Q6H PRN for PAIN-MODERATE (5-7), #10 TAB Prov: RAEANN MANRIQUE DO 11/25/21 RAEANN MANRIQUE DO Nov 25, 2021 22:16
[2021-11-25 22:25] LABS: BASOPHILS % (AUTO) 0 % (0-10); EOSINOPHILS # (AUTO) 0.1 10^3/uL (0.0-0.3); EOSINOPHILS % (AUTO) 2 % (0-10); HEMATOCRIT 37 % (35-52); HEMOGLOBIN 12.9 g/dL (11.5-16.0); LYMPHOCYTES # (AUTO) 2.9 10^3/uL (1.0-4.0); LYMPHOCYTES % (AUTO) 32 % (12-44); MEAN CORPUSCULAR HEMOGLOBIN 30 pg (25-34); MEAN CORPUSCULAR HGB CONC 35 g/dL (32-36); MEAN CORPUSCULAR VOLUME 87 fL (80-99); MEAN PLATELET VOLUME 9.7 fL (9.0-12.2); MONOCYTES # (AUTO) 0.5 10^3/uL (0.0-1.0); MONOCYTES % (AUTO) 6 % (0-12); NEUTROPHILS # (AUTO) 5.5 10^3/uL (1.8-7.8); NEUTROPHILS % (AUTO) 60 % (42-75); PLATELET COUNT 208 10^3/uL (130-400); WHITE BLOOD COUNT 9.1 10^3/uL (4.3-11.0)
[2021-11-25 22:48] LABS: ALBUMIN 4.5 GM/DL (3.2-4.5); BILIRUBIN,TOTAL 0.4 MG/DL (0.1-1.0); CALCIUM 9.2 MG/DL (8.5-10.1); CREATININE SERUM 0.71 MG/DL (0.60-1.30); TOTAL PROTEIN 7.1 GM/DL (6.4-8.2)
--- NOTE | 2021-11-25 23:06 | Diagnostic Imaging Report ---
PROCEDURE: CT abdomen and pelvis without contrast. TECHNIQUE: Multiple contiguous axial images were obtained through the abdomen and pelvis without the use of intravenous contrast. Auto Exposure Controls were utilized during the CT exam to meet ALARA standards for radiation dose reduction. INDICATION: Abdominal pain from previous hernia. History of cholecystectomy and appendectomy. EXAMINATION: CT abdomen and pelvis without contrast 11/25/2021. FINDINGS: Lung bases unremarkable. The nonopacified abdominal viscera limited by the lack of contrast. No gross acute abnormality appreciated within the liver or spleen. There is evidence of previous cholecystectomy. The adrenal glands and pancreas unremarkable. Kidneys unremarkable. There is an anterior abdominal wall hernia which contains fat. There is surrounding internal fat stranding suggesting inflammatory change. There is a nonobstructive bowel gas pattern. There is diverticulosis without evidence for diverticulitis. There is no ascites. No free air. Air is noted in the region of the cervix/vaginal canal likely iatrogenic. Correlate clinically. There is no acute osseous abnormality IMPRESSION: 1. Intra-abdominal wall hernia which contains fat with surrounding and internal inflammatory change noted. Mild inflammation extends into the adjacent intraperitoneal fat. Otherwise incidental findings as above. Dictated by: Dictated on workstation # [id number]
[2021-11-25 23:18] VITALS: BP 157/75
[2021-11-25] MEDS ORDERED: ACHD5005 PO (23:18)
== END 2021-11-25 23:22 | disposition home or self-care (01) ==
LOC: EDUNIT# 22:00 → ER FS 22:01
DX: K42.9 Umbilical hernia without obstruction or gangrene (principal); F17.290 Nicotine dependence, other tobacco product, uncomplicated
CPT/HCPCS: 36415; 74176; 80053; 85025

== ENCOUNTER 2021-12-18 05:30 | Outpatient (CLI) | payer MEDICAID ==
[~2021-12-18] VITALS: Ht 167 cm; Wt 94.5 kg
[~2021-12-18 05:30] MED LIST changes: +ACHD5005 PO
[2021-12-20] MEDS ORDERED: METO-310 PO (12:31)
== END 2021-12-20 12:35 | disposition home or self-care (01) ==
LOC: PREOP 05:30
PROVIDERS: ATTEND Surgery
DX: Z01.818 Encounter for other preprocedural examination (principal)

== ENCOUNTER 2021-12-25 05:55 | Day surgery (SDC) | payer MEDICAID ==
[2021-12-25] VITALS (11 sets, daily range): BP systolic 118–138; BP diastolic 78–91
[~2021-12-25] VITALS: Ht 167 cm; Wt 94.5 kg
[~2021-12-25 05:55] MED LIST changes: +METO-310 PO
[2021-12-25] MEDS ORDERED: MIDAZOLAM 2 MG/2 ML (VERSED) VIAL ONE (06:55)
[2021-12-25] MEDS ORDERED: fentaNYL INJ 100 MCG/2 ML AMP ONE (06:55)
[2021-12-25] MEDS ORDERED: SEVOFLURANE (ULTANE) 15 ML INHAL SOLN ONE ×2 (06:55→09:10)
[2021-12-25] MEDS ORDERED: proPOfol 200 MG/20 ML (DIPRIVAN) VIAL IV ONE (06:55)
[2021-12-25] MEDS ORDERED: LIDOCAINE PF 2% 5 ML (XYLOCAINE) VIAL ONE (06:55)
[2021-12-25] MEDS ORDERED: ONDANSETRON 4 MG/2 ML (SDV) Z0FRAN ONE (06:55)
[2021-12-25] MEDS ORDERED: ceFAZolin 2 GM IV Premixed 50 ML IV ONE (07:00)
[2021-12-25] MEDS ORDERED: ceFAZolin 2 GM IV Premixed 50 ML ONE (07:09)
[2021-12-25] MEDS ORDERED: LIDOCAINE/EPI 2% 1:100,00 (XYLOCAINE) 20 ML VIAL ONE (07:13)
[2021-12-25] MEDS: LACTATED RINGERS 1,000 ML IV PRN ×2 (07:13→08:48)
--- NOTE | 2021-12-25 08:07 | Progress Note-Pre Operative ---
Pre-Operative Progress Note H&P Reviewed The H&P was reviewed, patient examined and no changes noted. Time Seen by Provider: 08:00 Date H&P Reviewed: Dec 25, 2021 Time H&P Reviewed: 08:00 Pre-Operative Diagnosis: Inc/Vental Hernia TRICE EDDY DO Dec 25, 2021 08:07
[2021-12-25] MEDS ORDERED: HYDROCORTISONE 100 MG/2 ML (Solu-CORTEF) VIAL ONE (08:26)
[2021-12-25] MEDS ORDERED: HYDROmorphone 2 MG/ML VIAL (DILAUDID) ONE (08:26)
[2021-12-25] MEDS ORDERED: NEOSTIGMINE (BLOXIVERZ ) 1 MG/1ML 10 ML VIAL ONE (08:35)
[2021-12-25] MEDS ORDERED: GLYCOPYRROLATE 0.2 MG/ML (ROBINUL) 2 ML VIAL ONE (08:35)
[2021-12-25] MEDS ORDERED: KETOROLAC 30 MG/ML VIAL ONE (08:43)
--- NOTE | 2021-12-25 09:00 | Progress Note-Post Operative ---
Post-Operative Progess Note Surgeon (s)/Quarantine Inspector (s) Surgeon TRICE EDDY DO Quarantine Inspector: BRADY Karimi Pre-Operative Diagnosis Inc/Vental Hernia Post-Operative Diagnosis same Procedure & Operative Findings Date of Procedure 12/25/21 Procedure Performed/Findings PROCEDURE: Laparoscopic Ventral/Incisional hernia repair with mesh. COMPLICATIONS: None. INDICATIONS: The patient is a 26, female with an incisional hernia, which has continued to increase in size and cause discomfort. The patient was explained the risk and benefits of the procedure and wished to proceed with the procedure. Consent was signed on the chart. DESCRIPTION OF PROCEDURE: The patient was taken into the operating suite, prepped and draped in sterile fashion. Surgical pause was performed. Local anesthetic was infiltrated in left upper quadrant. A 15 blade scalpel was used to make a small skin incision. Cautery was used to dissect down to the fascia, which was then scored and divided the muscle, went through the posterior sheath and a balloon trocar was inserted into the abdomen. The abdomen was then insufflated. Incisional/Ventral hernia approximately 1cm in diameter. A 5 mm trocar was placed in the right lower quadrant and a 5 mm trocar was placed in left lower quadrant. Echo Ventralight mesh was then inserted in the abdomen grabbed through a stab incision. The balloon was inflated on the mesh. Circumferential tacks were placed with a SecureStrap Tacker. The balloon was then removed and inner crown was created as well. The mesh was tacked with pressure being decreased. The 12 mm fascial defect was then closed using 0 Vicryl. The abdomen was then desufflated,the trocars were removed. The skin was then closed using 4- 0 Monocryl in a running subcuticular fashion. The abdomen was washed and dried and Skin Affix was placed over the incisions. The patient tolerated procedure well without any complications. She was taken to recovery room in stable condition. Anesthesia Type GET Estimated Blood Loss Estimated blood loss (mL): scant Specimens/Packing Specimens Removed none TRICE EDDY DO Dec 25, 2021 09:00
[2021-12-25] MEDS ORDERED: ACHD5005 PO (09:02)
--- NOTE | 2021-12-25 09:03 | Discharge Inst-Surgical ---
Discharge Inst-Surgical Depart Medication/Instructions New, Converted or Re-Newed RX: Transmitted to Pharmacy Patient Instructions Follow up Appt: Make appointment for 1 week. [phone] Instructions: No lifting greater than 20 pounds. No strenuous activity. May shower in 24 hours, no tub bath or soaking. Use incentive spirometer at home as directed. No Smoking Skin/Wound Care: May remove bandages in am. You need to leave the Dermabond on incision it will fall off on it's own. Symptoms to Report: Appetite Changes, Extremity Discoloration, Numbness/Tingling, Swelling Increased, Bleeding Excessive, Eyesight Changes, Pain Increased, Urine Color Change, Constipation(Persistent), Fever over 101 degree F, Pain/Pressure in chest, Urinating Difficulty, Cough Up/Vomit Blood, Heart Beat Irreg/Pounding, Pain/Pressure in jaw, Cramps in feet or legs, Lightheadedness, Pain/Pressure in shoulder, Diarrhea(Persistent), Memory Changes Suddenly, Questions/Concerns, Weight gain consecutive days, Dizziness/Fainting, Nausea/Vomiting, Shortness of Breath, Weight gain over 2 pounds If questions or concerns contact your physician Or seek help at emergency department. Activity Activity as Tolerated: Yes Activity Instructions: Avoid Stress to Incision Driving Instructions: No Driving/Refer to Dr. Steinberg Discharge Diet: No Restrictions Diet After 24 Hours: Clear Liquid if Nauseous If Any Problems/Questions/Issu: Contact Your Physician, Go to Emergency Room Skin/Wound Care Infection Signs and Symptoms: Increased Redness, Foul Odor of Wound, Increased Drainage, Skin Itchy or Has a Rash, Increased Swelling, Temperature Above 101 F Bathing Instructions: Shower Stitches/Stephen/Dermabond Dis: TRICE Adrian DO Dec 25, 2021 09:03
[2021-12-25] MEDS ORDERED: diphenhydrAMINE 50 MG/ML INJ (BENADRYL) ONE (09:09)
[2021-12-25] MEDS ORDERED: MEPERIDINE (DEMEROL) INJ 50 MG/ML ONE (09:09)
[2021-12-25] MEDS ORDERED: HYDROmorphone 2 MG/ML VIAL (DILAUDID) IV ONE (09:15)
[2021-12-25] MEDS ORDERED: diphenhydrAMINE 50 MG/ML INJ (BENADRYL) IVP ONE (09:15)
[2021-12-25] MEDS ORDERED: ONDANSETRON 4 MG/2 ML (SDV) Z0FRAN IVP PRN (09:15)
[2021-12-25] MEDS ORDERED: MEPERIDINE (DEMEROL) INJ 50 MG/ML IVP ONE (09:15)
[2021-12-25] MEDS ORDERED: ACETAMINOPHEN 325 MG TABLET ONE (10:38)
[2021-12-25] MEDS ORDERED: ACETAMINOPHEN 325 MG TABLET PO ONE (10:45)
--- NOTE | 2021-12-25 12:13 | Anesthesia-General Post-Op ---
General Patient Condition Mental Status/LOC: Same as Preop Cardiovascular: Satisfactory Nausea/Vomiting: Absent Respiratory: Satisfactory Pain: Controlled Complications: Absent Post Op Complications Complications None Follow Up Care/Instructions Patient Instructions None needed. Anesthesia/Patient Condition Patient Condition Patient is doing well, no complaints, stable vital signs, no apparent adverse anesthesia problems. No complications reported per nursing. [place] [facility] [place]: Yes BHAVANA BLANDON CRNA Dec 25, 2021 12:13
== END 2021-12-25 11:25 | disposition home or self-care (01) ==
LOC: SDC 05:55
PROVIDERS: ATTEND Surgery
DX: K43.2 Incisional hernia without obstruction or gangrene (principal); F17.210 Nicotine dependence, cigarettes, uncomplicated
CPT/HCPCS: 49654; 84703; 87081; 94664; C1781

== ENCOUNTER 2022-05-18 22:22 | Emergency (ER) | payer MEDICAID ==
[~2022-05-18] VITALS: Ht 165.1 cm; Wt 95.9 kg
[~2022-05-18 22:22] MED LIST changes: +ALBU8.5H6 IH; -RT-ALBUINH IH
--- NOTE | 2022-05-18 22:36 | ED Respiratory ---
General Stated Complaint: FLU SYMPTOMS Source: patient Exam Limitations: no limitations History of Present Illness Date Seen by Provider: May 18, 2022 Time Seen by Provider: 22:23 Initial Comments 26-year-old female with no pertinent past medical history coming in due to 3 days of fever, body aches, cough, mild dyspnea. Both of her children have influenza A. Eating and drinking normally. No vomiting or diarrhea. Denies any chest pain or abdominal pain. Otherwise denying any other acute complaints. Has been alternating ibuprofen and Tylenol throughout the day. Allergies and Home Medications Allergies Coded Allergies: No Known Drug Allergies (Unverified , 01/30/19) Patient Home Medication List Home Medication List Reviewed: Yes Hydrocodone Bit/Acetaminophen (HYDROcodone/APAP 5 MG/325 MG TAB) 1 Tab Tab, 1 TAB PO Q8H PRN for PAIN-MODERATE (5-7) Prescribed by: TRICE EDDY on 12/25/21 0902 Metoclopramide HCl (Reglan) 10 Mg Tablet, 10 MG PO UD, (Reported) Entered as Reported by: PHILIPPE GOMEZ on 12/20/21 1231 Review of Systems Review of Systems Constitutional: fever Respiratory: cough, short of breath Cardiovascular: no symptoms reported Gastrointestinal: no symptoms reported Genitourinary: no symptoms reported Musculoskeletal: no symptoms reported Skin: no symptoms reported Psychiatric/Neurological: No Symptoms Reported Hematologic/Lymphatic: No Symptoms Reported Immunological/Allergic: no symptoms reported All Other Systems Reviewed Negative Unless Noted: Yes Past Mzcjwue-Iyqiqy-Ugbskn Hx Patient Social History Tobacco Use?: Yes Tobacco type used: Cigarettes Seasonal Allergies Seasonal Allergies: No Past Medical History Surgeries: Yes () Appendectomy, Gallbladder Respiratory: No Currently Using CPAP: No Currently Using BIPAP: No Cardiac: No Neurological: No Female Reproductive Disorders: Endometriosis, Ovarian Cyst Genitourinary: No Gastrointestinal: Yes (HERNIA) Musculoskeletal: Yes (HANDS, FEET, KNEE CAPS) Fractures Endocrine: No HEENT: No Cancer: No Psychosocial: No Integumentary: No Physical Exam Vital Signs - First Documented 05/18/22 22:26 O2 Delivery Room Air Capillary Refill : Height: 5'5.00" Weight: 160lbs. oz. 72.099397co; 33.88 BMI Method:Stated General Appearance: WD/WN, no apparent distress Eyes: Bilateral Eye Normal Inspection HEENT: PERRL/EOMI, normal ENT inspection, TMs normal, pharynx normal Neck: non-tender, full range of motion, supple, normal inspection Respiratory: chest non-tender, lungs clear, normal breath sounds, no re spiratory distress, no accessory muscle use Cardiovascular: regular rate, rhythm, no edema, no murmur Gastrointestinal: normal bowel sounds, non tender, soft; No distended, No guarding, No rebound Extremities: normal range of motion, non-tender, normal inspection, no pedal edema, no calf tenderness, normal capillary refill Neurologic/Psychiatric: no motor/sensory deficits, alert, normal mood/affect Skin: normal color, warm/dry Lymphatic: no adenopathy Progress/Results/Core Measures Suspected Sepsis SIRS Temperature: Pulse: Respiratory Rate: Blood Pressure / Mean: Results/Orders My Orders Orders - LAKISHA JUSTICE MD Chest Pa/Lat (2 View) (05/18/22 22:30) Vital Signs/I&O 05/18/22 22:26 O2 Delivery Room Air Capillary Refill : Progress Note : Progress Note 26-year-old female with above history coming in due to flulike symptoms in the setting of multiple family members having influenza A. ABCs were intact and vitals were stable on presentation. Physical exam reassuring including she is breathing comfortably with clear lung sounds. Chest x-ray ordered and interpreted by me showing no focal infiltrate, no pneumothorax, normal cardiac silhouette. I believe the patient is stable for discharge with outpatient fo llow-up. She was sent home with strict return precautions Diagnostic Imaging Diagonstic Imaging: Xray Plain Films/CT/US/NM/MRI: chest Departure Impression Primary Impression: Influenza Disposition: 01 HOME, SELF-CARE Condition: Stable Departure-Patient Inst. Decision time for Depature: 22:50 Referrals: SELFSTELLA MD (PCP/Family) Primary Care Physician Patient Instructions: Flu Add. Discharge Instructions: Unfortunately your symptoms are consistent with having the flu, especially since your children have it. Fortunately your chest xray is clear with no signs of pneumonia. Most adults have been having fever for roughly 4 days with the cough lasting a couple weeks. Some people are having nausea and diarrhea as well. Take 3 to 4 tablets of ibuprofen and 2 tablets of extra strength Tylenol both aetcpv-bzi-hkwku while you are having a fever and body aches. Focus on extra fluids for the next couple of days. If you are still having fever in the next 2 to 3 days, follow back up with your regular doctor. Work/School Note: Work Release Form Date Seen in the Emergency Department: May 18, 2022 Return to Work: May 20, 2022 Restrictions: Return-No Fever (24hrs) LAKISHA JUSTICE MD May 18, 2022 22:36
[2022-05-18 22:49] VITALS: BP 145/99
[2022-05-18] MEDS ORDERED: CEPH500C PO (23:01)
[2022-05-18] MEDS ORDERED: ACET-11 PO (23:01)
--- NOTE | 2022-05-19 08:12 | Diagnostic Imaging Report ---
EXAMINATION: Chest 2 view HISTORY: Cough. Shortness of breath. COMPARISON: 09/05/2019. FINDINGS: The lung volumes are normal. No focal consolidation is seen. Small amount of prominent interstitial markings are seen in the midlungs. No large pleural effusion or pneumothorax is seen. The cardiomediastinal silhouette is normal in size and contour. No acute osseous abnormality is seen. IMPRESSION: 1. Small amount of prominent interstitial markings in the midlungs, which can be seen with atelectasis or edema. Dictated by: Dictated on workstation # [id number]
== END 2022-05-18 22:49 | disposition home or self-care (01) ==
LOC: EDUNIT# 22:22 → ER FS 22:23
DX: J11.1 Influenza due to unidentified influenza virus with other respiratory manifestations (principal); F17.210 Nicotine dependence, cigarettes, uncomplicated; Z28.310 Unvaccinated for COVID-19
CPT/HCPCS: 71046

== ENCOUNTER 2022-08-24 23:09 | Emergency (ER) | payer MEDICAID, OTHER ==
[~2022-08-24] VITALS: Ht 165.1 cm; Wt 95.3 kg
[~2022-08-24 23:09] MED LIST changes: +ACET-11 PO; +CEPH500C PO
[2022-08-24 23:13] VITALS: BP 124/78
[2022-08-24] MEDS ORDERED: NS IV 1000 ML 1,000 ML IV STA (23:26)
[2022-08-24] MEDS ORDERED: ONDANSETRON 4 MG/2 ML (SDV) Z0FRAN IVP STA (23:26)
--- NOTE | 2022-08-24 23:32 | ED General ---
General Stated Complaint: VOMITING Source of Information: Patient History of Present Illness Date Seen by Provider: Aug 24, 2022 Time Seen by Provider: 23:14 Initial Comments 26-year-old female presenting with complaints of 2 to 3 days of sore throat. Today she started coughing more and was having coughing to the point that she gagged and threw up. She reports having 104.5 Fahrenheit temperature just prior to coming to the emergency department. She tried to take some Tylenol in the cool bath and she vomited so she is unsure how much of the Tylenol she had kept down. She was getting lightheaded and dizzy throughout the day especially with standing and walking around. She states she just started her menstrual cycle today as well. She denies any pain or burning with urination, diarrhea, abdominal pain. She has cough and is not bringing up anything but coughing to the point that she gags and vomits. She denies having a headache, chest pain, abdominal pain. She denies any ill contacts Timing/Duration: 2-3 Days Severity: Moderate Modifying Factors: worse with Movement (Worsens with activity as well as cough) Associated Systoms: Cough, Fever/Chills, Malaise, Nausea/Vomiting (Posttussive emesis); No Seizure, No Shortness of Air, No Syncope Allergies and Home Medications Allergies Coded Allergies: No Known Drug Allergies (Unverified , 01/30/19) Patient Home Medication List Home Medication List Reviewed: Yes Acetaminophen with Codeine (Acetaminophen-Cod #3 Tablet) 300 Mg-30 Mg Tablet, 1 TAB PO Q6H PRN for PAIN-MODERATE (5-7), (Reported) Entered as Reported by: FENG AMIN on 05/18/222300 Cephalexin (Cephalexin) 500 Mg Capsule, 500 MG PO QID, (Reported) Entered as Reported by: FENG AMIN on 05/18/22 230 Metoclopramide HCl (Reglan) 10 Mg Tablet, 10 MG PO UD, (Reported) Entered as Reported by: PHILIPPE GOMEZ on 12/20/21 1231 Ondansetron (Ondansetron Odt) 4 Mg Tab.rapdis, 4 MG PO Q6H PRN for NAUSEA/VOMITING Prescribed by: TIEN GERBER on 08/25/22 0021 Review of Systems Review of Systems Constitutional: chills, dizziness (With standing), fever EENTM: nose congestion, throat pain Respiratory: cough; No stridor, No wheezing Cardiovascular: no symptoms reported Gastrointestinal: see HPI Genitourinary: No dysuria : No LMP: Aug 24, 2022 Musculoskeletal: no symptoms reported Skin: No rash Psychiatric/Neurological: Denies Headache Past Hejeapb-Mgocxi-Uophew Hx Immunizations Up To Date First/Initial COVID19 Vaccinat: Unvaccinated Seasonal Allergies Seasonal Allergies: No Past Medical History Surgery/Hospitalization HX: hernia surgery Surgeries: Yes () Appendectomy, Gallbladder Respiratory: No Currently Using CPAP: No Currently Using BIPAP: No Cardiac: No Neurological: No Female Reproductive Disorders: Endometriosis, Ovarian Cyst Genitourinary: No Gastrointestinal: Yes (HERNIA) Musculoskeletal: Yes (HANDS, FEET, KNEE CAPS) Fractures Endocrine: No HEENT: No Cancer: No Psychosocial: No Integumentary: No Physical Exam Vital Signs Vital Signs - First Documented 08/24/22 23:13 Temp 38.6 Pulse 100 Resp 18 B/P (MAP) 124/78 (93) Pulse Ox 97 O2 Delivery Room Air Capillary Refill : Height, Weight, BMI Height: 5'5.00" Weight: 160lbs. oz. 72.756334oy; 35.00 BMI Method:Stated General Appearance: No Apparent Distress, WD/WN, Other (Appears to not feel well) HEENT: PERRL/EOMI, Moist Mucous Membranes, Pharyngeal Erythema; No Photophobia, No Tonsillar Exudate Neck: Full Range of Motion, Normal Inspection, Non Tender, Supple Respiratory: Chest Non Tender, Lungs Clear, Normal Breath Sounds, No Accessory Muscle Use, No Respiratory Distress Cardiovascular: Normal Peripheral Pulses, Tachycardia Gastrointestinal: Normal Bowel Sounds, No Pulsatile Mass, Non Tender, Soft Rectal: Deferred Extremity: Normal Capillary Refill, Normal Inspection, No Pedal Edema Neurologic/Psychiatric: Alert, Oriented x3, control chemist II-XII Norm as Tested Skin: Normal Color, Warm/Dry Progress/Results/Core Measures Suspected Sepsis SIRS Temperature: Pulse: Respiratory Rate: Laboratory Tests 08/24/22 23:25: White Blood Count 5.9 Blood Pressure / Mean: Laboratory Tests 08/24/22 23:25: Creatinine 0.73, Platelet Count 176, Total Bilirubin 0.4 Results/Orders Lab Results Laboratory Tests Test 08/24/22 23:25 08/24/22 23:40 Range/Units White Blood Count 5.9 4.3-11.0 10^3/uL Red Blood Count 4.43 3.80-5.11 10^6/uL Hemoglobin 13.3 11.5-16.0 g/dL Hematocrit 39 35-52 % Mean Corpuscular Volume 88 80-99 fL Mean Corpuscular Hemoglobin 30 25-34 pg Mean Corpuscular Hemoglobin Concent 34 32-36 g/dL Red Cell Distribution Width 12.2 10.0-14.5 % Platelet Count 176 130-400 10^3/uL Mean Platelet Volume 10.1 9.0-12.2 fL Immature Granulocyte % (Auto) 0 % Neutrophils (%) (Auto) 71 42-75 % Lymphocytes (%) (Auto) 19 12-44 % Monocytes (%) (Auto) 9 0-12 % Eosinophils (%) (Auto) 0 0-10 % Basophils (%) (Auto) 0 0-10 % Neutrophils # (Auto) 4.2 1.8-7.8 10^3/uL Lymphocytes # (Auto) 1.1 1.0-4.0 10^3/uL Monocytes # (Auto) 0.6 0.0-1.0 10^3/uL Eosinophils # (Auto) 0.0 0.0-0.3 10^3/uL Basophils # (Auto) 0.0 0.0-0.1 10^3/uL Immature Granulocyte # (Auto) 0.0 0.0-0.1 10^3/uL Sodium Level 140 135-145 MMOL/L Potassium Level 3.9 3.6-5.0 MMOL/L Chloride Level 105 98-107 MMOL/L Carbon Dioxide Level 25 21-32 MMOL/L Anion Gap 10 5-14 MMOL/L Blood Urea Nitrogen 6 L 7-18 MG/DL Creatinine 0.73 0.60-1.30 MG/DL Estimat Glomerular Filtration Rate 116 BUN/Creatinine Ratio 8 Glucose Level 105 70-105 MG/DL Calcium Level 8.7 8.5-10.1 MG/DL Corrected Calcium 8.4 L 8.5-10.1 MG/DL Total Bilirubin 0.4 0.1-1.0 MG/DL Aspartate Amino Transf (AST/SGOT) 25 5-34 U/L Alanine Aminotransferase (ALT/SGPT) 24 0-55 U/L Alkaline Phosphatase 100 40-136 U/L Total Protein 7.6 6.4-8.2 GM/DL Albumin 4.4 3.2-4.5 GM/DL Lipase 26 8-78 U/L Influenza Type A (RT-PCR) Not Detected Not Detecte Influenza Type B (RT-PCR) Not Detected Not Detecte SARS-CoV-2 RNA (RT-PCR) Detected H Not Detecte Group A Streptococcus Screen NEGATIVE NEGATIVE Urine Color YELLOW Urine Clarity CLOUDY Urine pH 8.0 5-9 Urine Specific Concepcion 1.020 1.016-1.022 Urine Protein NEGATIVE NEGATIVE Urine Glucose (UA) NEGATIVE NEGATIVE Urine Ketones NEGATIVE NEGATIVE Urine Nitrite NEGATIVE NEGATIVE Urine Bilirubin NEGATIVE NEGATIVE Urine Urobilinogen 0.2 < = 1.0 MG/DL Urine Leukocyte Esterase NEGATIVE NEGATIVE Urine RBC (Auto) 3+ H NEGATIVE Urine RBC 50-100 H /HPF Urine WBC RARE /HPF Urine Squamous Epithelial Cells 2-5 /HPF Urine Crystals NONE /LPF Urine Bacteria NEGATIVE /HPF Urine Casts NONE /LPF Urine Mucus SMALL H /LPF Urine Culture Indicated NO My Orders Orders - TIEN GERBER MD Ua Culture If Indicated (08/24/22 23:14) Urine Bedside (08/24/22 23:14) Comprehensive Metabolic Panel (08/24/22 23:24) Lipase (08/24/22 23:24) Ed Iv/Invasive Line Start (08/24/22 23:24) Cbc With Automated Diff (08/24/22 23:24) Rapid Strep A Screen (08/24/22 23:24) Covid 19 Inhouse Test (08/24/22 23:24) Influenza A And B By Pcr (08/24/22 23:24) Isolation Central Supply Req (08/24/22 23:24) Chest 1 View Ap/Pa Only (08/24/22 23:24) Ns Iv 1000 Ml (Sodium Chloride 0.9%) (08/24/22 23:26) Ondansetron Injection (Zofran Injectio (08/24/22 23:26) Ibuprofen Tablet (Motrin Tablet) (08/24/22 23:41) Albuterol Inhaler (Albuterol) (08/25/22 00:12) Nursing Communication (Order) (08/25/22 00:12) Rx-Ondansetron Po (Rx-Zofran Po) (08/25/22 00:15) Medications Given in ED Current Medications Medications Dose Ordered Sig/Gisell Route Start Time Stop Time Status Last Admin Dose Admin Ondansetron HCl 4 mg Q6H PRN PO 08/25/22 00:15 08/25/22 00:19 4 MG Vital Signs/I&O 08/24/22 08/25/22 23:13 00:04 Temp 38.6 38.6 Pulse 100 Resp 18 B/P (MAP) 124/78 (93) Pulse Ox 97 O2 Delivery Room Air Capillary Refill : Progress Note #1: Progress Note Potential diagnosis of strep throat, COVID, influenza, upper respiratory viral infection, pneumonia, bronchitis, viral syndrome. Obtain peripheral IV access and send labs for complete blood count, comprehensive metabolic profile, lipase, urinalysis. Obtain bedside urine test. Nasal swab to check for COVID and influenza, throat swab to check for strep, chest x-ray to look for signs of pneumonia or infiltrate. Administer normal saline 1 L IV fluid bolus for hydration, Zofran 4 mg IV for nausea and vomiting. Patient's temperature is 101.4 and she was unsure how much Tylenol she may have kept down. After the Zofran could administer some ibuprofen to try and help with her temperature. Progress Note #2: Time: 23:39 Progress Note On my personal interpretation and review of her 1 view chest x-ray she has no acute infiltrate or effusion. Progress Note #3: Time: 00:12 Progress Note Complete blood count did not show any acute significant abnormalities such as high white blood cell count or low hemoglobin to account for her dizziness and fevers. She had no acute significant normality on her comprehensive metabolic profile and electrolytes. Her urinalysis had blood in it but she admits to starting her menstrual cycle today. There is no bacteria for infection. Her strep rapid test was negative so a culture was reflexed. Her nasal swab was negative for influenza but positive for COVID. Her heart rate was improved with IV fluid hydration. She is down to 95-100 sinus rhythm when I was reviewing results with her. She was tolerating sips of oral hydration. Given take-home pack of Zofran dissolving tablets 4 mg every 6 hours as needed nausea and vomiting. Sent a prescription for 3 additional days if needed. Supplied with an albuterol inhaler and a spacer so that she could use 2 puffs every 4 hours as needed for cough and shortness of breath. Continue to work on sipping fluids. Use Mucinex ovdp-zox-gsqoxoy to help thin out cough and congestion. Try to wear mask for the next 10 days and especially for the next 5 days trying to quarantine and isolate is much as possible from her children and family members. If having worsening symptoms or concern for oxygen then return or be reevaluated to see if she would need additional treatment or admission. At this point she was not hypoxic and was responding to medications. Diagnostic Imaging Diagonstic Imaging: Xray Plain Films/CT/US/NM/MRI: chest Reviewed: Reviewed by Me Departure Impression Primary Impression: COVID-19 virus infection Additional Impressions: Fever in adult Nausea and vomiting in adult Pharyngitis Qualified Codes: J02.9 - Acute pharyngitis, unspecified Cough Qualified Codes: R05.1 - Acute cough Post-tussive emesis Disposition: 01 HOME, SELF-CARE Condition: Stable Departure-Patient Inst. Decision time for Depature: 00:14 Referrals: STELLA NINO MD (PCP/Family) Primary Care Physician Patient Instructions: COVID-19 ED, Cough, Adult ED, Fever, Adult ED, How to Use a Metered Dose Inhaler ED, How to Use a Spacer, Nausea and Vomiting, Adult ED, Sore Throat, Adult ED Add. Discharge Instructions: Per mask around others for the next 10 days. For the next 5 days try to isolate as much as you can to help limit exposure for other family members and people. He may continue acetaminophen and ibuprofen to help with fever and body aches. Uzyh-btd-ilmxtcd you could use Mucinex to help loosen and thin out mucus and congestion. Try to keep sipping on fluids for hydration. Use the dissolving nausea tablets, ondansetron or Zofran, to help keep your stomach settled. Use the albuterol inhaler by taking 2 puffs with your spacer every 4 hours as needed for shortness of breath, cough. Check back with the clinic if having continued concerns. If you are having more severe trouble breathing you could certainly be rechecked to make sure your oxygen level is staying up. At this point there is no indication to admit you to the hospital but if your oxygen level were to drop or you are having more trouble breathing we would have to reassess that. Scripts Ondansetron (Ondansetron Odt) 4 Mg Tab.rapdis 4 MG PO Q6H PRN for NAUSEA/VOMITING for 3 Days, #12 TAB 0 Refills Prov: TIEN GERBER MD 08/25/22 TIEN GERBER MD Aug 24, 2022 23:32
[2022-08-24 23:35] LABS: BASOPHILS % (AUTO) 0 % (0-10); EOSINOPHILS % (AUTO) 0 % (0-10); HEMATOCRIT 39 % (35-52); HEMOGLOBIN 13.3 g/dL (11.5-16.0); LYMPHOCYTES # (AUTO) 1.1 10^3/uL (1.0-4.0); LYMPHOCYTES % (AUTO) 19 % (12-44); MEAN CORPUSCULAR HEMOGLOBIN 30 pg (25-34); MEAN CORPUSCULAR HGB CONC 34 g/dL (32-36); MEAN CORPUSCULAR VOLUME 88 fL (80-99); MEAN PLATELET VOLUME 10.1 fL (9.0-12.2); MONOCYTES # (AUTO) 0.6 10^3/uL (0.0-1.0); MONOCYTES % (AUTO) 9 % (0-12); NEUTROPHILS # (AUTO) 4.2 10^3/uL (1.8-7.8); NEUTROPHILS % (AUTO) 71 % (42-75); PLATELET COUNT 176 10^3/uL (130-400); WHITE BLOOD COUNT 5.9 10^3/uL (4.3-11.0)
[2022-08-24] MEDS ORDERED: IBUPROFEN 800 MG (MOTRIN) TAB PO STA (23:41)
[2022-08-24 23:57] LABS: BILIRUBIN,URINE NEGATIVE (NEGATIVE); CLARITY,URINE CLOUDY; COLOR,URINE YELLOW; GLUCOSE, URINE (UA) NEGATIVE (NEGATIVE); KETONES,URINE NEGATIVE (NEGATIVE); LEUKOCYTE ESTERASE ,URINE NEGATIVE (NEGATIVE); NITRITE,URINE NEGATIVE (NEGATIVE); PROTEIN,URINE NEGATIVE (NEGATIVE)
[2022-08-25 00:01] LABS: ALBUMIN 4.4 GM/DL (3.2-4.5); BILIRUBIN,TOTAL 0.4 MG/DL (0.1-1.0); CALCIUM 8.7 MG/DL (8.5-10.1); CREATININE SERUM 0.73 MG/DL (0.60-1.30); POTASSIUM 3.9 MMOL/L (3.6-5.0); TOTAL PROTEIN 7.6 GM/DL (6.4-8.2)
[2022-08-25 00:10] LABS: BACTERIA,URINE NEGATIVE /HPF; RBC,URINE 50-100 /HPF; WBC,URINE RARE /HPF
[2022-08-25] MEDS ORDERED: RT-ALBUTEROL HFA 8.5 GM INHALER IH STA (00:12)
[2022-08-25] MEDS ORDERED: RX-ONDANSETRON 4 MG ODT (ZOFRAN) PPK #4 PO PRN (00:15)
[2022-08-25] MEDS ORDERED: ONDA4TAB11 PO (00:21)
--- NOTE | 2022-08-25 07:09 | Diagnostic Imaging Report ---
INDICATION: Cough and fever Portable chest 11:26 PM Heart and mediastinum are normal. Lungs are clear. There are no effusions or pneumothoraces. IMPRESSION: Negative chest. Dictated by: Dictated on workstation # [id number]
== END 2022-08-25 00:26 | disposition home or self-care (01) ==
LOC: EDUNIT# 23:09 → ER FS 23:11
DX: U07.1 COVID-19 (principal); J02.9 Acute pharyngitis, unspecified; Z28.310 Unvaccinated for COVID-19
CPT/HCPCS: 36415; 71045; 80053; 81000; 83690; 84703; 85025; 87430; 87636; 94640